=== PATIENT | female | born 1960 | race Caucasian/White ===

== ENCOUNTER → 2019-06-19 16:53 | Outpatient (CLI) | payer BC, SELFPAY | LOC: LABSPEC 16:56 | PROVIDERS: Family Provider Physician Assistant; PCP Physician Assistant | DX: R82.998 Other abnormal findings in urine (principal) | CPT/HCPCS: 87086; 87088; 87186 ==

== ENCOUNTER 2022-04-17 07:30 | Outpatient (RCR) | payer BC, SELFPAY ==
--- NOTE | 2022-03-18 08:34 | HP.PTEVAL_ITS ---
Patient's Visit Information LAMBERTO JUNIOR is a 61 year old F referred to Physical Therapy by Dr. Olinda Humphrey DO with a diagnosis of LBP with radiculopathy. Date of Evaluation: 03/18/22 Physical Therapist: Juarez Porter, PT, ATC - Visit Plan Frequency: 2x /Week Duration: 4-6 Weeks Plan: SKTC/DKTC, L/S stab ex's in neutral spine, LE stretching and strengthening, postural edu, and HEP - Subjective Pt reports she has had LBP chronically for several years. Pt notes her pain will radiate down her L LE all the way down to her foot. Pt reports she has been cramping in her LE's a lot as well. Pt notes she was placed on restless leg syn drome medication a while ago, which helped with the movements at night time. However, pt notes that is when her LE cramping began. Pt notes she has taken herself off the meds now and the cramping is gone. Pt reports her back pain remains the same. Pt reports her pain is worse at night time when she lyes down on her L side. Pt reports her pain is bad also if she sits for a long period of time and then attempts to stand up. 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 Pt reports stretching her LE's helps to take away some of her pain. Pt reports she had a L/S xray recently which revealed OA. Pt reports sleep difficulty at this time secondary to pain. 4/10 LBP while sitting here at rest, 9/10 pain at worst (when she is lying down) - Pain LBP Pain Intensity (Out of 10): 4 Pain Intensity Range: 9 - Objective Neuro: B LE sensation is WNL to light touch. ROM: Pt is minimally limited with R SB today. No other limitations. R SB causes increased pain. MMT: L hip flexor strength and knee flexion is 4/5 and provokes LBP. all other B LE's 5/5 thr oughout. Repeated movements: RFIS 10x3 produces increased LBP. GIOVANI 10x3 NE. REIL 10x2 increased LBP. LE flexibility: - Balance/Special Test Scores Oswestry Low Back Score: 12 - Goals Goal 1:: Decrease LBP x 50% to aid with sleep Goal Time Frame: 4-6 Weeks Goal 2:: Decrease the frequency and intensity of L LE radiculopathy x 50% to aid with ambulation Goal Time Frame: 4-6 Weeks Goal 3:: Pt will both verbally and physically display proper posture to aid with preventing future LBP Goal Time Frame: 4-6 Weeks Goal 4:: I with HEP Goal Time Frame: 4-6 Weeks - Rehabilitation Potential Physical Therapy Diagnosis: Pt has LBP, R LE radiculopathy, and difficulty with sit to stand activity secondary to Deg changes in the L/S Rehabilitation Potential: Good - Anticipated Interventions Patient/Client Instruction: Educate patient on: Condition, Plan of Care For the Purpose of:: To improve self management Therapeutic Exercise to Include: Strength training, Endurance training, Balance training, Body mechanics, Postural training, Dynamic Lumbar Stabilization For the Purpose of:: To decrease pain, To increase ROM, To improve muscle performance and motor function Thank you for the opportunity to evaluate your patient. For Medicare and Medicare HMO plans, please review the plan of care and approve it. It will need to be FAXED BACK to us at [phone] for Medicare purposes. For Medicare only, by signing this I certify the plan of care. Please let me know if there are questions or concerns regarding this plan of care. Physician S ignature: Date:
--- NOTE | 2022-04-17 08:10 | HP.PTDCSUM ---
It has been my pleasure to treat LAMBERTO JUNIOR referred by Dr. Olinda Humphrey, DO, with the diagnosis of LBP with radiculopathy for a total of 7 visit(s). Discharge Date: Please see the following information for a summary of their discharge status. Subjective: I am feeling much better now. LBP Pain Intensity (Out of 10): 2 % Improvement: 75 Objective/Function: 2/10 LBP. Pt no longer has sleep difficulty at this time secondary to pain. Pt no longer has LE radiculopathy at this time. Pt is now physically and verbally aware of posture at this time. Pt is I with HEP and has achieved Rx goals. Goal 1:: Decrease LBP x 50% to aid with sleep Goal Progress: Goal Met Goal 2:: Decrease the frequency and intensity of L LE radiculopathy x 50% to aid with ambulation Goal Progress: Goal Met Goal 3:: Pt will both verbally and physically display proper posture to aid with preventing future LBP Goal Progress: Goal Met Goal 4:: I with HEP Goal Progress: Goal Met Plan: Discharge to HEP If there are questions or concerns regarding this patient's physical therapy, please feel free to call me at [phone]. Thank you for the referral of this patient. Sincerely, Juarez Porter, PT, ATC Balance/Gait/Functional tests - Balance/Special Test Scores Oswestry Low Back Score: 0
== END 2022-04-17 19:00 | disposition home or self-care (01) ==
LOC: PT 07:30
DX: M54.16 Radiculopathy, lumbar region (principal)
CPT/HCPCS: 97110; 97161; 97164

== ENCOUNTER 2022-10-26 17:30 | Outpatient (RCR) | payer BC, SELFPAY ==
--- NOTE | 2022-07-30 10:59 | HP.PTEVAL_ITS ---
Patient's Visit Information LAMBERTO JUNIOR is a 61 year old F referred to Physical Therapy by ADRIAN ESTEBAN with a diagnosis of L TKA 07/30/22. Date of Evaluation: 07/30/22 Physical Therapist: Juarez Porter, PT, ATC - Visit Plan Frequency: 2-3x /Week Duration: 4-6 Weeks Plan: L knee PROM/mobs, stretching and strengthening, balance and proprio, core strengthening, nustep, and HEP - Subjective DOS: 07/29/22. Pt reports she had a L TKA performed at that time. Pt reports she is in a lot of pain today. Pt notes she is sleeping in a recliner at this time Pt also notes her PA is concerned with her incision bleeding today and wants a picture of it. Pt notes she was not walking with any assistive device prior to surgery but is using a WW at this time. Pt notes she has several steps in her house and 4 steps to get into her house which she is able to negotiate one step at a time. Pt [place] in [place] [employer] [place] has to stand on concrete all day and climb ladders. Pt denies tingling or numbness in her L LE at this time. Pt reports she has not been issued any HEP at this time. L knee pain is 4/10 at rest currently and has not changed at all. - Pain L knee Pain Intensity (Out of 10): 4 Pain Intensity Range: 4 - Objective Neuro: B LE sensation is WNL. Tu.24. ROM: R knee 0-5-120, L knee 0-20-75. MMT: R knee flex= 39, ext= 45 #F; L knee flex= 10, ext= 11 #F. Girth at joint line: R knee 41 cm, L knee 43 cm. Gait: Pt is able to ambulate approximately 140 feet from waiting room to eval room without difficulty this date - Balance/Special Test Scores Lower Extremity Functional Score: 4 - Goals Goal 1:: Decrease L knee pain x 50% to aid with sleep Goal Time Frame: 4-6 Weeks Goal 2:: Increase L knee ROM x 50 degrees to aid with stair negotiation Goal Time Frame: 4-6 Weeks Goal 3:: Increase L knee strength x 30 #F to aid with RTW without limitation Goal Time Frame: 4-6 Weeks Goal 4:: I with HEP Goal Time Frame: 4-6 Weeks - Rehabilitation Potential Physical Therapy Diagnosis: Pt has L knee pain, weakness, and limited ROM secondary to L TKA Rehabilitation Potential: Good - Anticipated Interventions Patient/Client Instruction: Educate patient on: Condition, Plan of Care For the Purpose of:: To improve self management Therapeutic Exercise to Include: Strength training, Endurance training, Balance training, Flexibilty training, Gait and locomotor training, Passive ROM, Active ROM, Dynamic Lumbar Stabilization For the Purpose of:: To decrease pain, To increase ROM, To improve muscle performance and motor function Cryotherapy (ice pack, ice massage): Yes For the Purpose of:: To decrease pain Thank you for the opportunity to evaluate your patient. For Medicare and Medicare HMO plans, please review the plan of care and approve it. It will need to be FAXED BACK to us at [phone] for Medicare purposes. For Medicare only, by signing this I certify the plan of care. Please let me know if there are questions or concerns regarding this plan of care. Physician Signature: Date:
--- NOTE | 2022-08-25 10:09 | HP.PTREVAL ---
ADRIAN ESTEBAN, It has been my pleasure to treat LAMBERTO JUNIOR over the last 8 visits for L TKA 07/30/22. Please see the progress note below for an update on the physical therapy plan of care! Subjective: Pt reports she still has pain today. Also complains of LBP this date Objective/Function: L knee pain ranges from 5-7/10. L knee ROM: 0-10-98. L knee MMT: flex= 30, ext= 25 #F. Pt continues to lack functional ROM at this time Plan Plan: Focus strictly on ROM flex and extension for the next 3 weeks. Balance/Gait/Functional tests - Balance/Special Test Scores Lower Extremity Functional Score: 52 Goals Goal 1:: Decrease L knee pain x 50% to aid with sleep Goal Time Frame: 4-6 Weeks Goal Progress: Progressing Goal 2:: Increase L knee ROM x 50 degrees to aid with stair negotiation Goal Time Frame: 4-6 Weeks Goal Progress: Progressing Goal 3:: Increase L knee strength x 30 #F to aid with RTW without limitation Goal Time Frame: 4-6 Weeks Goal Progress: Progressing Goal 4:: I with HEP Goal Time Frame: 4-6 Weeks Goal Progress: Progressing Anticipated Interventions Patient/Client Instruction: Educate patient on: Condition, Plan of Care For the Purpose of:: To improve self management Therapeutic Exercise to Include: Strength training, Endurance training, Balance training, Flexibilty training, Gait and locomotor training, Passive ROM, Active ROM, Dynamic Lumbar Stabilization For the Purpose of:: To decrease pain, To increase ROM, To improve muscle performance and motor function Cryotherapy (ice pack, ice massage): Yes For the Purpose of:: To decrease pain Please do not hesitate to contact me at [phone] by phone or if you have questions or concerns regarding this new plan of care! Sincerely, Juarez Porter, PT, ATC
--- NOTE | 2022-10-26 18:00 | HP.PTDCSUM ---
It has been my pleasure to treat LAMBERTO JUNIOR referred by ADRIAN ESTEBAN, with the diagnosis of L TKA 07/30/22 for a total of 34 visit(s). Discharge Date: Please see the following information for a summary of their discharge status. Subjective: Pt reports she has been sore since she returned to work last week L knee Pain Intensity (Out of 10): 1 % Improvement: 95 Objective/Function: L knee pain ranges from 1-5/10. Pt is I with HEP. L knee MMT: flex= 33, ext= 39 #F. L knee ROM: 0-128 degrees Goal 1:: Decrease L knee pain x 50% to aid with sleep Goal Progress: Goal Met Goal 2:: Increase L knee ROM x 50 degrees to aid with stair negotiation Goal Progress: Goal Met Goal 3:: Increase L knee strength x 30 #F to aid with RTW without limitation Goal Progress: Goal Met Goal 4:: I with HEP Goal Progress: Goal Met Plan: Discharge to HEP If there are questions or concerns regarding this patient's physical therapy, please feel free to call me at [phone]. Thank you for the referral of this patient. Sincerely, Juarez Porter, PT, ATC Balance/Gait/Functional tests - Balance/Special Test Scores Lower Extremity Functional Score: 75
== END 2022-10-26 19:00 | disposition home or self-care (01) ==
LOC: PT 17:30
DX: M17.12 Unilateral primary osteoarthritis, left knee (principal); Z47.1 Aftercare following joint replacement surgery; Z96.652 Presence of left artificial knee joint
CPT/HCPCS: 97110; 97140; 97161; 97164

== ENCOUNTER 2023-06-17 13:38 | Emergency (ER) | payer BC, SELFPAY ==
[2023-06-17 13:39] VITALS: BP 127/81; PULSE 99; RESP 16; TEMP 36.4; O2SAT 97; BMI 28.0
--- OUTSIDE RECORDS SUMMARY | 2023-06-17 14:49 | XMS RPT_ITS | CCD ---
Author Name Unknown Address [address] [place] [address] Organization [facility] Care Team Providers Care Stock Lifter Name Role Phone SEEELODIA OSPINA Q Unavailable Unavailable SEEELODIA OSPINA Unavailable Unavailable WAYT JAJA Unavailable Unavailable WENDY DO, DR RENAE Primary Care Physician ([facility] )[id number] Ronda Veronica Unavailable Unavailable Payal Strong Unavailable Unavailable Danielle Lemus Unavailable Unavailable WENDY DO, DR RENAE Primary Care Physician ([facility] )[id number] HANK GARRETT, DR SENA Attending Unavailable WENDY DO, DR RENAE Primary Care Unavailable WEDNY DO, DR RENAE Attending Unavailable WENDY DO, DR RENAE Primary Care Unavailable WENDY DO, DR RENAE Attending Unavailable WENDY DO, DR RENAE Primary Care Unavailable WENDY DO, DR RENAE Primary Care Unavailable CAMILO FARIAS, DR JASMYNE Yap Attending Unavaildilma e WENDY DO, DR RENAE Primary Care Unavailable LESLY GARRETT, LIOR Melo Attending Unavailable DULIK DO, DR SENA Attending Unavailable WENDY DO, DR RENAE Primary Care Unavailable Medications Current Medications Medication Drug Class(es) Dates Sig (Normalized) Sig (Original) 8 hr acetaminophen 650 mg extended release oral tablet (7 sources) Start: 10-31-2021 Tylenol 8 Hour 650 mg oral tablet, extended release Dose : 1,300 mg = 2 tab(s), Oral, q8h, 0 Refill(s) Start Date: 10/31/21 Status: Ordered albuterol MDI (90 mcg/inh) CFC free inhalation aerosol (1 source) Start: 05-22-2023 take 2 puff(s) by inhalation every four hours as needed for wheezing albuterol MDI (90 mcg/inh) CFC free inhalation aerosol 2 puff(s), Inhalation, q4h, PRN as needed for wheezing, # 8.5 gram(s), 0 Refill(s) Start Date: 05/22/23 Status: Ordered Azithromycin 5 Day Dose Pack 250 mg oral tablet (1 source) Start: 05-22-2023 End: 05-26-2023 Azithromycin 5 Day Dose Pack 250 mg oral tablet Dose : 250 mg = 1 tab(s), Oral, qDay, X 4 day(s), # 4 tab(s), 0 Refill(s), 05/26/23 12:52:00 PM EST, 87.2 Start Date: 05/22/23 Stop Date: 05/26/23 Status: Ordered cefdinir 300 mg oral capsule (1 source) Cephalosporin Antibacterial Start: 06-09-2022 End: 06-14-2022 cefdinir 300 mg oral capsule Dose : 300 mg = 1 cap(s), Oral, q12h, X 5 day(s), # 10 cap(s), 0 Refill(s), 06/14/22 10:19:00 EST, Pharmacy: [id number], Acute UTI, 167, cm, 06/09/22 9:55:00 EST, Height, 86.6 Start Date: 06/09/22 Stop Date: 06/14/22 Status: Ordered cephalexin 500 mg oral capsule (1 source) Cephalosporin Antibacterial Start: 06-11-2021 End: 06-18-2021 cephalexin 500 mg oral capsule Dose : 500 mg = 1 cap(s), Oral, q8h, X 7 day(s), # 21 cap(s), 0 Refill(s), 06/18/21 16:59:00 EST, Pharmacy: [facility]/pharmacy #[id number], UTI (urinary tract infection), 172, cm, 06/11/21 16:37:00 EST, Height, 85.7, kg, 06/11/21 16:37:00 EST, Dosing Weight Start Date: 06/11/21 Stop Date: 06/18/21 Status: Ordered homatropine methylbromide 1.5 mg / HYDROcodone bitartrate 5 mg oral tablet (1 source) Opioid Agonist, Cholinergic Muscarinic Agonist Start: 05-22-2023 End: 05-25-2023 take 1 tablet by mouth every four hours as needed for cough homatropine-hydro codone 1.5 mg-5 mg oral tablet Dose = 1 tab(s), Oral, q4h, PRN as needed for cough, Dx: R05, # 10 tab(s), 0 Refill(s), Pneumonia, 87.2 Start Date: 05/22/23 Stop Date: 05/25/23 Status: Ordered pantoprazole 40 mg delayed release oral tablet (6 sources) Proton Pump Inhibitor Start: 04-07-2022 pantoprazole 40 mg oral enteric coated tablet Dose : 40 mg = 1 tab(s), Oral, qDay, # 30 tab(s), 0 Refill(s) Start Date: 04/07/22 Status: Ordered rOPINIRole 0.25 mg oral tablet (5 sources) Nonergot Dopamine Agonist Start: 06-07-2020 rOPINIRole 0.25 mg oral tablet Dose : 0.25 mg = 1 tab(s), qHS, 0 Refill(s) Start Date: 06/07/20 Status: Ordered sulfamethoxazole 800 mg / trimethoprim 160 mg oral tablet (1 source) Dihydrofolate Reductase Inhibitor Antibacterial, Sulfonamide Antimicrobial Start: 08-13-2021 End: 08-20-2021 take 1 tablet by mouth twice daily Bactrim DS 800 mg-160 mg oral tablet Dose = 1 tab(s), Oral, BID, X 7 day(s), # 14 tab(s), 0 Refill(s), Pharmacy: [id number], 172, cm, 08/13/21 10:25:00 EST, Height, 89.8, kg, 08/13/21 10:25:00 EST, Dosing Weight Start Date: 08/13/21 Stop Date: 08/20/21 Status: Ordered traZODone hydrochloride 50 mg oral tablet (4 sources) Serotonin Reuptake Inhibitor Start: 07-14-2022 traZODone 50 mg oral tablet Dose : 50 mg = 1 tab(s), Oral, qHS, # 30 tab(s), 0 Refill(s), Pharmacy: [id number], 167, cm, 07/14/22 7:17:00 EST, Height Start Date: 07/14/22 Status: Ordered Completed/Discontinued Medications Medication Drug Class(es) Dates Sig (Normalized) Sig (Original) baclofen 10 mg oral tablet (11 sources) gamma-Aminobutyric Acid-ergic Agonist Start: 08-19-2021 End: 11-17-2021 baclofen 10 mg oral tablet Dose : 10 mg = 1 tab(s), Oral, q6hr, # 120 tab(s), 2 Refill(s), Pharmacy: [facility], 172, cm, 08/13/21 10:25:00 EST, Height, kg, 08/13/21 10:25:00 EST, Dosing Weight Start Date: 08/19/21 Stop Date: 11/17/21 Status: Ordered Problems Active Problems Problem Classification Problem Date Documented Da te Episodic/Chronic Disorders of lipid metabolism (11 sources) Hyperlipidemia 07-31-2020 Chronic Esophageal disorders (9 sources) Gastroesophageal reflux disease without esophagitis 09-02-2021 Chronic Heart valve disorders (11 sources) Heart murmur 10-16-2014 Episodic Menopausal disorders (11 sources) Atrophy of vagina 10-12-2019 Chronic Mood disorders (11 sources) Depressive disorder 10-23-2014 Chronic Osteoarthritis (9 sources) Arthritis 10-16-2014 Chronic Osteoporosis (11 sources) Osteoporosis 06-28-2020 Chronic Other connective tissue disease (7 sources) Cramp in lower limb 09-02-2021 Episodic Other gastrointestinal disorders (11 sources) Irritable bowel syndrome 10-12-2019 Chronic Other nervous system disorders (6 sources) Paresthesia of lower extremity 04-07-2022 Episodic Other nutritional; endocrine; and metabolic disorders (4 sources) Obesity 07-14-2022 Chronic Other nutritional; endocrine; and metabolic disorders (11 sources) Overweight 10-12-2019 Episodic Other skin disorders (11 sources) Vesicular eczema of hands and/or feet 10-12-2019 Episodic Pneumonia (except that caused by tuberculosis or sexually transmitted disease) (2 sources) Pneumonia; Translations: [Pneumonia, unspecified organism] Onset: Episodic Residual codes; unclassified (11 sources) Obstructive sleep apnea syndrome 06-07-2020 Chronic Residual codes; unclassified (5 sources) Sleep apnea 10-16-2014 Chronic Residual codes; unclassified (11 sources) Postmenopausal state 06-07-2020 Episodic Residual codes; unclassified (4 sources) Insomnia 07-14-2022 Episodic Spondylosis; intervertebral disc disorders; other back problems (6 sources) Lumbar spondylosis 04-07-2022 Chronic Spondylosis; intervertebral disc disorders; other back problems (9 sources) Spasm of back muscles 10-12-2019 Episodic Unclassified (1 source) Unknown / UNK(Unknown) Onset: 7 Unclassified (9 sources) Cancer cervix screening status 06-07-2020 Unclassified (18 sources) Patient encounter status 06-07-2020 Unclassified (2 sources) Acquired absence of uterine cervix 09-22-2022 Past or Other Problems Problem Classification Problem Date Documented Da te Episodic/Chronic Genitourinary symptoms and ill-defined conditions (10 sources) Abnormal urinalysis; Translations: [Foul smelling urine] Onset: 06-09-2022 06-09-2022 Episodic Unclassified (1 source) CP, SOB, PALPITATIONS Onset: 12-31-2016 Urinary tract infections (8 sources) Recurrent urinary tract infection; Translations: [Urinary tract infection, site not specified] Onset: 06-09-2022 06-09-2022 Episodic Results Test Name Value Interpretation Reference Range Facil ity Vital Signs Date Time Vital Sign Value Performing Clinician Faci lity 05-22-2023 14:02-0500 Diastolic Blood Pressure Non-Invasive 79 mm[Hg] DR JASMYNE PAGE MD [facility] 05-22-2023 14:02-0500 Heart rate 122 /min DR JASMYNE PAGE MD [facility] 05-22-2023 14:02-0500 Reason For Taking VItal Signs DR JASMYNE PAGE MD [facility] 05-22-2023 14:02-0500 Respiratory rate 16 /min DR JASMYNE PAGE MD [facility] 05-22-2023 14:02-0500 Systolic Blood Pressure Non-Invasive 130 mm[Hg] DR JASMYNE PAGE MD [facility] 05-22-2023 12:58-0500 Heart rate 112 /min DR JASMYNE PAGE MD [facility] 05-22-2023 12:58-0500 Respiratory rate 20 /min DR JASMYNE PAGE MD [facility] 05-22-2023 12:29-0500 Diastolic Blood Pressure Non-Invasive 78 mm[Hg] DR JASMYNE PAGE MD [facility] 05-22-2023 12:29-0500 Heart rate 115 /min DR JASMYNE PAGE MD [facility] 05-22-2023 12:29-0500 Respiratory rate 22 /min DR JASMYNE PAGE MD [facility] 05-22-2023 12:29-0500 Systolic Blood Pressure Non-Invasive 126 mm[Hg] DR JASMYNE PAGE MD [facility] 05-22-2023 10:16-[address] JASMYNE PAGE MD [facility] 05-22-2023 10:16-0500 Body temperature 97.88 [degF] DR JASMYNE PAGE MD [facility] 05-22-2023 10:16-0500 Diastolic Blood Pressure Non-Invasive 88 mm[Hg] DR JASMYNE PAGE MD [facility] 05-22-2023 10:16-0500 Reason For Taking VItal Signs DR JASMYNE PAGE MD [facility] 05-22-2023 10:16-0500 Systolic Blood Pressure Non-Invasive 123 mm[Hg] DR JASMYNE PAGE MD [facility] 10-31-2021 10:25-0400 Diastolic Blood Pressure NBP [address] NAZ HAN MD [facility] 10-31-2021 10:25-0400 Heart rate 86 /min DR NAZ HAN MD [facility] 10-31-2021 10:25-0400 Respiratory rate 19 /min DR NAZ HAN MD [facility] 10-31-2021 10:25-0400 Systolic Blood Pressure NBP [address] NAZ HAN MD [facility] 10-31-2021 10:20-0400 Diastolic Blood Pressure NBP [address] NAZ HAN MD [facility] 10-31-2021 10:20-0400 Heart rate 87 /min DR NAZ HAN MD [facility] 10-31-2021 10:20-0400 Respiratory rate 12 /min DR NAZ HAN MD [facility] 10-31-2021 10:20-0400 Systolic Blood Pressure NBP [address] NAZ HAN MD [facility] 10-31-2021 10:12-0400 Diastolic Blood Pressure NBP [address] NAZ HAN MD [facility] 10-31-2021 10:12-0400 Heart rate 82 /min DR NAZ HAN MD [facility] 10-31-2021 10:12-0400 Respiratory rate 19 /min DR NAZ HAN MD [facility] 10-31-2021 10:12-0400 Systolic Blood Pressure NBP [address] NAZ HAN MD [facility] 10-31-2021 10:05-0400 Heart rate 71 /min DR NAZ HAN MD [facility] 10-31-2021 08:02-0400 Body height [address] NAZ HAN MD [facility] 10-31-2021 08:02-0400 Body temperature 97.34 [degF] DR NAZ HAN MD [facility] 10-31-2021 08:02-0400 Body weight [address] NAZ HAN MD [facility] 10-31-2021 08:02-0400 Body weight 31.91 kg/m2 DR NAZ HAN MD [facility] 10-31-2021 08:02-0400 diastolic 81 mm[Hg] DR ANZ HAN MD [facility] 10-31-2021 08:02-0400 systolic 136 mm[Hg] DR NAZ HAN MD [facility] Encounters Encounter Date Encounter Type Care Provider Facility Start: 05-22-2023 End: 05-22-2023 Emergency department patient visit DR OC NGUYEN DO Facility:B Start: 05-22-2023 End: 05-22-2023 Emergency department patient visit DR JASMYNE PAGE MD [facility] Start: 10-27-2022 End: 10-28-[address] OC NGUYEN DO Facility:[facility] Start: 10-27-2022 End: 10-27-[address] OC NGUYEN DO [facility] Start: 09-17-2022 End: 09-18-[address] OC NGUYEN DO Facility:[facility] Start: 09-17-2022 End: 09-17-[address] OC NGUYEN DO [facility] Start: 07-14-2022 End: 07-15-[address] NATHEN MCKINNEY DO Facility:[facility] Start: 07-14-2022 End: 07-14-[address] NATHEN MCKINNEY DO [facility] Start: 07-10-2022 End: 07-11-[address] NATHEN MCKINNEY DO Facility:[facility] Start: 07-10-2022 End: 07-10-[address] NATHEN MCKINNEY DO [facility] Start: 06-09-2022 End: 06-14-[address] OC NGUYEN DO Facility:[facility] Start: 06-09-2022 End: 06-13-2022 Outreach Lab LIOR GRACE DO [facility] Start: 10-31-2021 End: 10-31-[address] NAZ HAN MD [facility] Start: 10-22-2021 End: 10-22-[address] OC NGUYEN DO [facility] Start: 09-15-2021 End: 09-15-[address] OC NGUYEN DO [facility] Start: 08-13-2021 End: 08-17-2021 Outreach Lab COREY AVELAR ESCROW REPRESENTATIVEiCar AsiaROTOGRAVURE PRESS OPERATOR [facility] Start: 06-11-2021 End: 06-15-2021 Outreach Lab COREY AVELAR ESCROW REPRESENTATIVEiCar AsiaROTOGRAVURE PRESS OPERATOR [facility] Start: 12-31-2016 Ambulatory [facility] Facility :[facility] Procedures Date Procedure Procedure Detail Performing Clinician Start: 10-23-2014 Hysterectomy COREY AVELAR ESCROW REPRESENTATIVE-ROTOGRAVURE PRESS OPERATOR Immunizations Immunization Date Immunization Notes Care Provider Latha newman 02-12-2021 COVID-19, mRNA, LNP- S, PF, 100 mcg/ 0.5 mL dose; Translations: [Moderna COVID-19 Vaccine] COREY AVELAR ESCROW REPRESENTATIVE-ROTOGRAVURE PRESS OPERATOR [facility] 01-15-2021 COVID-19, mRNA, LNP- S, PF, 100 mcg/ 0.5 mL dose; Translations: [Moderna COVID-19 Vaccine] COREY AVELAR ESCROW REPRESENTATIVE-ROTOGRAVURE PRESS OPERATOR [facility] 06-07-2020 tetanus toxoid, redu velvet diphtheria toxoid, and acellular pertussis vaccine, adsorbed; Translations: [Boostrix (Tdap)] COREY AVELAR ESCROW REPRESENTATIVE-ROTOGRAVURE PRESS OPERATOR [facility] Payers Date Payer Category Payer Unknown [id number] 2021 Unknown [id number] 2016 Unknown [id number] 1961 Unknown [id number] 2.16.8 [id number] 1961 Unknown [id number] 2.16.8 [id number] 1961 Unknown [id number] 2.16.8 [id number] 1961 Unknown [id number] 2.16.8 [id number] 1961 Unknown [id number] 2.16.8 [id number] 1961 Unknown [id number] [id number] [id number] Social History Date Type Detail Facility Start: 12-30-2018 Ex-smoker (finding) [facility] Sex Assigned At Female [facility] Functional Status Date Assessment Result Facility 05-22-2023 Functional Status ID band on [facility] 05-22-2023 Functional Status [facility] 10-31-2021 Functional Status [facility] Mental Status Date Assessment Result Facility 05-22-2023 Mental Status Orientation Oriented x 4 [facility] 05-22-2023 Mental Status [facility] 10-31-2021 Mental Status [facility] Clinical Notes 02-11-2021 to 05-22-2023 Laboratory Note Date & Type Note Facility 05-22-2023 Hospital Discharge instructions Patient Education 05/22/2023 12:52:10 Pneumonia (Adult) Pneumonia (Adult) Pneumonia is an infection deep within the lungs. It is in the small air sacs (alveoli). Pneumonia may be caused by a virus or bacteria. Pneumonia caused by bacteria is usually treated with an antibiotic. Severe cases may need to be treated in the hospital. Milder cases can be treated at home. Symptoms usually start to get better during the first 2 days of treatment. Home care Follow these guidelines when caring for yourself at home: Rest at home for the first 2 to 3 days, or until you feel stronger. Don t let yourself get overly tired when you go back to your activities. Stay away from cigarette smoke yours or other people s. You may use acetaminophen or ibuprofen to control fever or pain, unless another medicine was prescribed. If you have chronic liver or kidney disease, talk with your healthcare provider before using these medicines. Also talk with your provider if you ve had a stomach ulcer or gastrointestinal bleeding. Don t give aspirin to anyone younger than 18 years of age who is ill with a fever. It may cause severe liver damage. Your appetite may be poor, so a light diet is fine. Drink 6 to 8 glasses of fluids every day to make sure you are getting enough fluids. Beverages can include water, sport drinks, sodas without caffeine, juices, tea, or soup. Fluids will help loosen secretions in the lung. This will make it easier for you to cough up the phlegm (sputum). If you also have heart or kidney disease, check with your healthcare provider before you drink extra fluids. Take antibiotic medicine prescribed until it is all gone, even if you are feeling better after a few days. Follow-up care Follow up with your healthcare provider in the next 2 to 3 days, or as advised. This is to be sure the medicine is helping you get better. If you are 65 or older, you should get a pneumococcal vaccine and a yearly flu (influenza) shot. You should also get these vaccines if you have chronic lung disease like asthma, emphysema, or COPD. Recently, a second type of pneumonia vaccine has become available for everyone over 65 years old. This is in addition to the previous vaccine. Ask your provider about this. When to seek medical advice Call your healthcare provider right away if any of these occur: You don t get better within the first 48 hours of treatment Shortness of breath gets worse Rapid breathing (more than 25 breaths per minute) Coughing up blood Chest pain gets worse with breathing Fever of 100.4 F (38 C) or higher that doesn t get better with fever medicine Weakness, dizziness, or fainting that gets worse Thirst or dry mouth that gets worse Sinus pain, headache, or a stiff neck Chest pain not caused by coughing [phone] [employer]. [address] [place] [address]. All rights reserved. This information is not intended as a substitute for professional medical care. Always follow your healthcare professional's instructions. Follow Up Care 05/22/2023 10:10:14 With:OC NGUYEN DO Address: [address] [place] [phone]- [phone] When:2-4 days [facility] 05-22-2023 Emergency department Discharge summary Discharge Instructions Thank you for allowing [facility] to assist you with your healthcare needs. The following is important discharge information regarding your hospital visit. Diagnosis from Today's Visit Pneumonia Shortness of breath What to Do Next Instructions from Your Care Team No qualifying data available. Post Acute Orders No qualifying data available. You Need to Schedule the Following Appointments Follow Up with OC NGUYEN DO When Within 2-4 days Where: [address] [place] [phone] Allergies NKA Medications Please ask your primary doctor or pharmacist before taking any other medication not listed, including over the counter drugs, herbal medications, vitamins and or supplements as they may interact with your home medications. What How Much When Why Instructions Last Dose New albuterol (albuterol MDI (90 mcg/ inh) CFC free inhalation aerosol) 2 puff(s) by inhalation Every 4 hours as needed for as needed for wheezing Printed Prescription New azithromycin (Azithromycin 5 Day Dose Pack 250 mg oral tablet) 1 tab(s) by mouth Once a day Duration: 4 Days Printed Prescription New homatropine-hydrocodone (homatropine-hydrocodone 1.5 mg-5 mg oral tablet) 1 tab(s) by mouth Every 4 hours as needed for as needed for cough Pneumonia Duration: 3 Days Dx: R05 Printed Prescription Unchanged acetaminophen (Tylenol 8 Hour 650 mg oral tablet, extended release) 2 tab(s) by mouth Every 8 hours Unchanged baclofen (baclofen 10 mg oral tablet) 1 tab(s) by mouth Every 6 hours Duration: 30 Days Unchanged denosumab (Prolia 60 mg/ mL subcutaneous solution) 1 Milliliter Subcutaneous Every 6 months Unchanged denosumab (Prolia 60 mg/ mL subcutaneous solution) 1 Milliliter Subcutaneous Every 6 months Unchanged pantoprazole (pantoprazole 40 mg oral enteric coated tablet) 1 tab(s) by mouth Once a day Unchanged traZODone (traZODone 50 mg oral tablet) 1 tab(s) by mouth Daily at bedtime Please take this list to your next doctor s visit. Bring all medications you take, including over the counter medications, herbals and other supplements with you to your doctor s visit. Patients and families are reminded to discard old lists and to update any records with all medication providers or retail pharmacies. Medication Leaflets azithromycin (oral/injection) (a ALONDRA MAYBERRY sin) Azithromycin 3 Day Dose Pack, Azithromycin 5 Day Dose Pack, Zithromax, Zithromax IV, Zithromax TRI-RA, Zithromax Z-Ra What is the most important information I should know about azithromycin? You should not use azithromycin if you have ever had an allergic reaction, jaundice, or liver problems while taking this medicine. You should not use azithromycin if you have ever had a severe allergic reaction to similar drugs such as clarithromycin, erythromycin, or telithromycin. What is azithromycin? Azithromycin is used to treat many different types of infections caused by bacteria, including infections of the lungs, sinus, throat, tonsils, skin, urinary tract, cervix, or genitals. Azithromycin may also be used for purposes not listed in this medication guide. What should I discuss with my healthcare provider before using azithromycin? You should not use azithromycin if you are allergic to it, or if you have ever had: jaundice or liver problems caused by taking azithromycin; or a severe allergic reaction to similar drugs such as clarithromycin, erythromycin, or telithromycin. Azithromycin oral should not be used to treat pneumonia in people who have: cystic fibrosis; an infection after being in a hospital; an infection in the blood; a weak immune system (caused by diseases such as HIV/AIDS or cancer); or in older adults and those who are ill or debilitated. Tell your doctor if you have ever had: pneumonia; liver or kidney disease; myasthenia gravis; low levels of potassium in your blood; a heart rhythm disorder; or long QT syndrome (in you or a family member). It is not known whether this medicine is effective in treating genital ulcers in women. Tell your doctor if you are or . Taking azithromycin while may cause diarrhea, vomiting, or rash in the nursing baby. Azithromycin is not approved for use by anyone younger than 6 months old. Azithromycin should not be used to treat a throat or tonsil infection in a child younger than 2 years old. How should I take azithromycin? Follow all directions on your prescription label and read all medication guides or instruction sheets. Use the medicine exactly as directed. Azithromycin oral is taken by mouth. Azithromycin injection is given as an infusion into a vein, usually for 2 days before you switch to azithromycin oral. A healthcare provider will give you this injection. You may take azithromycin oral with or without food. Shake the oral suspension (liquid) before you measure a dose. Use the dosing syringe provided, or use a medicine dose-measuring device (not a kitchen spoon). Use this medicine for the full prescribed length of time, even if your symptoms quickly improve. Skipping doses can increase your risk of infection that is resistant to medication. Azithromycin will not treat a viral infection such as the flu or a common cold. Store at room temperature away from moisture and heat. Throw away any unused liquid medicine after 10 days. What happens if I miss a dose? Take the medicine as soon as you can, but skip the missed dose if it is almost time for your next dose. Do not take two doses at one time. What happens if I overdose? Seek emergency medical attention or call the Poison Help line at . What should I avoid while taking azithromycin? Antibiotic medicines can cause diarrhea, which may be a sign of a new infection. If you have diarrhea that is watery or bloody, call your doctor before using anti-diarrhea medicine. Azithromycin could make you sunburn more easily. Avoid sunlight or tanning beds. Wear protective clothing and use sunscreen (SPF 30 or higher) when you are outdoors. What are the possible side effects of azithromycin? Get emergency medical help if you have signs of an allergic reaction (hives, difficult breathing, swelling in your face or throat) or a severe skin reaction (fever, sore throat, burning in your eyes, skin pain, red or purple skin rash that spreads and causes blistering and peeling). Seek medical treatment if you have a serious drug reaction that can affect many parts of your body. Symptoms may include: skin rash, fever, swollen glands, muscle aches, severe weakness, unusual bruising, or yellowing of your skin or eyes. Call your doctor at once if you have: severe stomach pain, diarrhea that is watery or bloody; fast or pounding heartbeats, fluttering in your chest, shortness of breath, and sudden dizziness (like you might pass out); or liver problems--nausea, vomiting, loss of appetite, stomach pain (upper right side), tiredness, itching, dark urine, william-colored stools, jaundice (yellowing of the skin or eyes); Call your doctor right away if a baby taking azithromycin becomes irritable or vomits while eating or nursing. Older adults may be more likely to have side effects on heart rhythm, including a life-threatening fast heart rate. Common side effects may include: nausea, vomiting; or stomach pain. This is not a complete list of side effects and others may occur. Call your doctor for medical advice about side effects. You may report side effects to FDA at 8-269-QRI-1062. What other drugs will affect azithromycin? Tell your doctor about all your other medicines, especially: colchicine; digoxin; nelfinavir; phenytoin; an antacid that contains aluminum or magnesium--Acid Gone, Gaviscon, Gelusil, Maalox, Milk of Magnesia, Mylanta, Pepcid Complete, Rolaids, Rulox, and others; or a blood thinner--warfarin, Coumadin, Jantoven. This list is not complete. Other drugs may affect azithromycin, including prescription and evew-oll-jlbzwcz medicines, vitamins, and herbal products. Not all possible drug interactions are listed here. Where can I get more information? Your pharmacist can provide more information about azithromycin. Remember, keep this and all other medicines out of the reach of children, never share your medicines with others, and use this medication only for the indication prescribed. Every effort has been made to ensure that the information provided by [employer]. [employer]') is accurate, up-to-date, and complete, but no guarantee is made to that effect. Drug information contained herein may be time sensitive. [employer] information has been compiled for use by healthcare practitioners and consumers in the [place] and therefore [employer] does not warrant that uses outside of the [place] are appropriate, unless specifically indicated otherwise. [employer] drug information does not endorse drugs, diagnose patients or recommend therapy. [employer] drug information is an informational resource designed to assist licensed healthcare practitioners in caring for their patients and/or to serve consumers viewing this service as a supplement to, and not a substitute for, the expertise, skill, knowledge and judgment of healthcare practitioners. The absence of a warning for a given drug or drug combination in no way should be construed to indicate that the drug or drug combination is safe, effective or appropriate for any given patient. [employer] does not assume any responsibility for any aspect of healthcare administered with the aid of information [employer] provides. The information contained herein is not intended to cover all possible uses, directions, precautions, warnings, drug interactions, allergic reactions, or adverse effects. If you have questions about the drugs you are taking, check with your doctor, nurse or pharmacist. Copyright 1547-0827 [employer]. Version: 18.01. Revision Date: 10/20/2018. albuterol inhalation (al BYOO ter all) ProAir HFA, ProAir RespiClick, Proventil HFA, Ventolin HFA What is the most important information I should know about albuterol inhalation? Follow all directions on your medicine label and package. Tell each of your healthcare providers about all your medical conditions, allergies, and all medicines you use. What is albuterol inhalation? Albuterol inhalation is a bronchodilator that is used to treat or prevent bronchospasm in people with reversible obstructive airway disease. Albuterol is also used to prevent exercise-induced bronchospasm. Albuterol inhalation is for use in adults and children at least 4 years old. Albuterol inhalation may also be used for purposes not listed in this medication guide. What should I discuss with my healthcare provider before using albuterol inhalation? You should not use this medicine if you are allergic to albuterol. You should not use ProAir RespiClick if you are allergic to milk proteins. Tell your doctor if you have ever had: heart disease, high blood pressure; a thyroid disorder; seizures; diabetes; or low levels of potassium in your blood. Tell your doctor if you are or plan to become . It is not known whether albuterol will harm an unborn baby. However, having uncontrolled asthma during may increase the risk of premature , low weight, or eclampsia (dangerously high blood pressure that can lead to medical problems in both mother and baby). The benefit of preventing bronchospasm may outweigh any risks to the baby. If you are , your name may be listed on a registry to track the effects of albuterol on the baby. It may not be safe to breastfeed while using this medicine. Ask your doctor about any risk. How should I use albuterol inhalation? Follow all directions on your prescription label and read all medication guides. Use the medicine exactly as directed. Do not allow a young child to use albuterol inhalation without help from an adult. To prevent exercise-induced bronchospasm, use this medicine 15 to 30 minutes before you exercise. The effects of albuterol inhalation should last about 4 to 6 hours. Seek medical attention if your breathing problems get worse quickly, or if you think your asthma medications are not working as well. Read and carefully follow any Instructions for Use provided with your medicine. Ask your doctor or pharmacist if you do not understand these instructions. ProAir HFA, Proventil HFA, or Ventolin HFA must be shaken before each use. You do not need to shake ProAir RespiClick before using. Do not try to clean or take apart the ProAir RespiClick inhaler device. Always use the new inhaler device provided with your refill. Do not float a medicine canister in water to see if it is empty. Your dose needs may change due to surgery, illness, stress, or a recent asthma attack. Do not change your dose or dosing schedule without your doctor's advice. Store at room temperature away from moisture, heat, or cold temperatures. Keep the cover on your ProAir RespiClick inhaler when not in use. Store Proventil or Ventolin with the mouthpiece down. Keep the inhaler canister away from open flame or high heat. The canister may explode if it gets too hot. Do not puncture or burn an empty inhaler canister. What happens if I miss a dose? Use the medicine as soon as you can, but skip the missed dose if it is almost time for your next dose. Do not use two doses at one time. Get your prescription refilled before you run out of medicine completely. What happens if I overdose? Seek emergency medical attention or call the Poison Help line at . An overdose of albuterol can be fatal. Overdose symptoms may include dry mouth, tremors, chest pain, fast heartbeats, nausea, general ill feeling, seizure, feeling light-headed or fainting. What should I avoid while using albuterol inhalation? Rinse with water if this medicine gets in your eyes. What are the possible side effects of albuterol inhalation? Get emergency medical help if you have signs of an allergic reaction: hives; difficult breathing; swelling of your face, lips, tongue, or throat. Call your doctor at once if you have: wheezing, choking, or other breathing problems after using this medicine; chest pain, fast heart rate, pounding heartbeats or fluttering in your chest; severe headache, pounding in your neck or ears; pain or burning when you urinate; high blood sugar--increased thirst, increased urination, dry mouth, fruity breath odor; or low potassium--leg cramps, constipation, irregular heartbeats, increased thirst or urination, numbness or tingling, muscle weakness or limp feeling. Common side effects may include: chest pain, fast or pounding heartbeats; upset stomach, vomiting; painful urination; dizziness; feeling shaky or nervous; headache, back pain, body aches; or cough, sore throat, sinus pain, runny or stuffy nose. This is not a complete list of side effects and others may occur. Call your doctor for medical advice about side effects. You may report side effects to FDA at 0-150-CJV-9539. What other drugs will affect albuterol inhalation? Tell your doctor about all your other medicines, especially: any other inhaled medicines or bronchodilators; digoxin; a diuretic or 'water pill'; an antidepressant--amitriptyline, desipramine, imipramine, doxepin, nortriptyline, and others; a beta negar--atenolol, carvedilol, labetalol, metoprolol, propranolol, sotalol, and others; or an MAO inhibitor--isocarboxazid, linezolid, methylene blue injection, phenelzine, rasagiline, selegiline, tranylcypromine, and others. This list is not complete. Other drugs may affect albuterol inhalation, including prescription and kxcp-dhy-dcxcblr medicines, vitamins, and herbal products. Not all possible drug interactions are listed here. Where can I get more information? Your pharmacist can provide more information about albuterol inhalation. Remember, keep this and all other medicines out of the reach of children, never share your medicines with others, and use this medication only for the indication prescribed. Every effort has been made to ensure that the information provided by [employer] is accurate, up-to-date, and complete, but no guarantee is made to that effect. Drug information contained herein may be time sensitive. [employer] information has been compiled for use by healthcare practitioners and consumers in the [place] and therefore [employer] does not warrant that uses outside of the [place] are appropriate, unless specifically indicated otherwise. [employer]'s drug information does not endorse drugs, diagnose patients or recommend therapy. [employer] drug information is an informational resource designed to assist licensed healthcare practitioners in caring for their patients and/or to serve consumers viewing this service as a supplement to, and not a substitute for, the expertise, skill, knowledge and judgment of healthcare practitioners. The absence of a warning for a given drug or drug combination in no way should be construed to indicate that the drug or drug combination is safe, effective or appropriate for any given patient. [employer] does not assume any responsibility for any aspect of healthcare administered with the aid of information [employer] provides. The information contained herein is not intended to cover all possible uses, directions, precautions, warnings, drug interactions, allergic reactions, or adverse effects. If you have questions about the drugs you are taking, check with your doctor, nurse or pharmacist. Copyright [id number] [employer]. Version: 10.. Revision Date: 05/08/2020. homatropine and hydrocodone (PHYLICIA a TROE peen and ROSALINA sheri KOE done) Hycoollie, Hydromet What is the most important information I should know about homatropine and hydrocodone? MISUSE OF THIS MEDICINE CAN CAUSE ADDICTION, OVERDOSE, OR . Keep the medication in a place where others cannot get to it. Fatal side effects can occur if you use this medicine with alcohol, or with other drugs that cause drowsiness or slow your breathing. What is homatropine and hydrocodone? Homatropine and hydrocodone is a combination medicine used to treat runny or stuffy nose, sneezing, cough, and sinus congestion caused by allergies or the common cold. Homatropine and hydrocodone contains an opioid cough medicine and may be habit-forming. Homatropine and hydrocodone may also be used for purposes not listed in this medication guide. What should I discuss with my healthcare provider before taking homatropine and hydrocodone? You should not use this medicine if you are allergic to homatropine or hydrocodone, or if you have: severe asthma or breathing problems; a stomach or bowel obstruction (including paralytic ileus); severe or uncontrolled high blood pressure; severe coronary artery disease (clogged arteries); narrow-angle glaucoma; or if you are unable to urinate. Do not give this medicine to anyone younger than 6 years old. Do not use this medicine if you have used an MAO inhibitor in the past 14 days, such as isocarboxazid, linezolid, methylene blue injection, phenelzine, rasagiline, selegiline, or tranylcypromine. Tell your doctor if you have ever had: lung disease or breathing problems; a head injury, brain tumor, or seizure; constipation, a bowel obstruction, or stomach problems; problems with your bile duct, pancreas, or adrenal gland; an enlarged prostate; urination problems; liver or kidney disease; low blood pressure; heart disease, a blood vessel disorder; a drug addiction; or if you have a fever and cough with mucus. If you use opioid medicine while you are , your baby could become dependent on the drug. This can cause life-threatening withdrawal symptoms in the baby after it is born. Babies born dependent on opioids may need medical treatment for several weeks. Ask a doctor before using opioid medicine if you are . Tell your doctor if you notice severe drowsiness or slow breathing in the nursing baby. How should I take homatropine and hydrocodone? Follow the directions on your prescription label and read all medication guides. Never use this medicine in larger amounts, or for longer than prescribed. Cold or cough medicine is only for short-term use until your symptoms clear up. Never share this medicine with another person, especially someone with a history of drug abuse or addiction. MISUSE CAN CAUSE ADDICTION, OVERDOSE, OR . Keep the medicine in a place where others cannot get to it. Selling or giving away this medicine is against the law. Measure liquid medicine carefully. Use the dosing syringe provided, or use a medicine dose-measuring device (not a kitchen spoon). Rinse after each use. Call your doctor if your symptoms do not improve after 5 days, or if you have a fever, rash, or headaches. If you need surgery or medical tests, tell the surgeon or doctor ahead of time if you have taken a cough or cold medicine within the past few days. Store at room temperature away from moisture and heat. Do not freeze. Do not keep leftover medication. Just one dose can cause in someone using this medicine accidentally or improperly. Read and carefully follow the instructions provided with this medicine about how to safely dispose of any unused portion. What happens if I miss a dose? Since this medicine is used when needed, you may not be on a dosing schedule. Skip any missed dose if it's almost time for your next dose. Do not use two doses at one time. What happens if I overdose? Seek emergency medical attention or call the Poison Help line at . An opioid overdose can be fatal, especially in a child or other person using the medicine without a prescription. Overdose symptoms may include severe drowsiness, pinpoint pupils, slow breathing, or no breathing. Your doctor may recommend you get naloxone (a medicine to reverse an opioid overdose) and keep it with you at all times. A person caring for you can give the naloxone if you stop breathing or don't wake up. Your caregiver must still get emergency medical help and may need to perform CPR (cardiopulmonary resuscitation) on you while waiting for help to arrive. Anyone can buy naloxone from a pharmacy or local health department. Make sure any person caring for you knows where you keep naloxone and how to use it. What should I avoid while taking homatropine and hydrocodone? Do not drink alcohol. Dangerous side effects or could occur. Avoid driving or operating machinery until you know how this medicine will affect you. Dizziness or severe drowsiness can cause falls or other accidents. What are the possible side effects of homatropine and hydrocodone? Get emergency medical help if you have signs of an allergic reaction: hives; difficult breathing; swelling of your face, lips, tongue, or throat. Opioid medicine can slow or stop your breathing, and may occur. A person caring for you should give naloxone and/or seek emergency medical attention if you have slow breathing with long pauses, blue colored lips, or if you are hard to wake up. Stop taking this medicine and call your doctor at once if you have: noisy breathing, sighing, shallow breathing; extreme drowsiness, confusion, feeling weak or limp; a seizure; a light-headed feeling, like you might pass out; severe constipation, stomach pain; little or no urination; adrenal gland problems--nausea, vomiting, loss of appetite, dizziness, worsening tiredness or weakness; or high levels of serotonin in the body--agitation, hallucinations, fever, sweating, shivering, fast heart rate, muscle stiffness, twitching, loss of coordination, nausea, vomiting, diarrhea. Serious breathing problems may be more likely in older adults and in those who are debilitated or have wasting syndrome or chronic breathing disorders. Common side effects may include: drowsiness, dizziness; lack of energy, coordination problems; headache, confusion; dry mouth, nausea, vomiting, constipation; tremors, fast or irregular heart rate; or feeling anxious, restless, nervous, or irritable. This is not a complete list of side effects and others may occur. Call your doctor for medical advice about side effects. You may report side effects to FDA at 2-377-GPM-0498. What other drugs will affect homatropine and hydrocodone? You may have breathing problems or withdrawal symptoms if you start or stop taking certain other medicines. Tell your doctor if you also use an antibiotic, antifungal medication, heart or blood pressure medication, seizure medication, or medicine to treat HIV or hepatitis C. Opioid medication can interact with many other drugs and cause dangerous side effects or . Be sure your doctor knows if you also use: cold or allergy medicines, bronchodilator asthma/COPD medication, or a diuretic ('water pill'); medicines for motion sickness, irritable bowel syndrome, or overactive bladder; other opioids--opioid pain medicine or prescription cough medicine; a sedative like Valium--diazepam, alprazolam, lorazepam, Xanax, Klonopin, Versed, and others; drugs that make you sleepy or slow your breathing--a sleeping pill, muscle relaxer, medicine to treat mood disorders or mental illness; drugs that affect serotonin levels in your body--a stimulant, or medicine for depression, Parkinson's disease, migraine headaches, serious infections, or nausea and vomiting. This list is not complete. Other drugs may affect homatropine and hydrocodone, including prescription and zsns-ghj-ysxfvhw medicines, vitamins, and herbal products. Not all possible interactions are listed here. Where can I get more information? Your pharmacist can provide more information about homatropine and hydrocodone. Remember, keep this and all other medicines out of the reach of children, never share your medicines with others, and use this medication only for the indication prescribed. Every effort has been made to ensure that the information provided by [employer]. [employer] is accurate, up-to-date, and complete, but no guarantee is made to that effect. Drug information contained herein may be time sensitive. [employer] information has been compiled for use by healthcare practitioners and consumers in the [place] and therefore [employer] does not warrant that uses outside of the [place] are appropriate, unless specifically indicated otherwise. [employer]'s drug information does not endorse drugs, diagnose patients or recommend therapy. [employer] drug information is an informational resource designed to assist licensed healthcare practitioners in caring for their patients and/or to serve consumers viewing this service as a supplement to, and not a substitute for, the expertise, skill, knowledge and judgment of healthcare practitioners. The absence of a warning for a given drug or drug combination in no way should be construed to indicate that the drug or drug combination is safe, effective or appropriate for any given patient. [employer] does not assume any responsibility for any aspect of healthcare administered with the aid of information [employer] provides. The information contained herein is not intended to cover all possible uses, directions, precautions, warnings, drug interactions, allergic reactions, or adverse effects. If you have questions about the drugs you are taking, check with your doctor, nurse or pharmacist. Copyright [id number] [employer]. Version: 8.01. Revision Date: 02/01/2023. Education [employer] Pneumonia (Adult) Pneumonia is an infection deep within the lungs. It is in the small air sacs (alveoli). Pneumonia may be caused by a virus or bacteria. Pneumonia caused by bacteria is usually treated with an antibiotic. Severe cases may need to be treated in the hospital. Milder cases can be treated at home. Symptoms usually start to get better during the first 2 days of treatment. Home care Follow these guidelines when caring for yourself at home: Rest at home for the first 2 to 3 days, or until you feel stronger. Don t let yourself get overly tired when you go back to your activities. Stay away from cigarette smoke yours or other people s. You may use acetaminophen or ibuprofen to control fever or pain, unless another medicine was prescribed. If you have chronic liver or kidney disease, talk with your healthcare provider before using these medicines. Also talk with your provider if you ve had a stomach ulcer or gastrointestinal bleeding. Don t give aspirin to anyone younger than 18 years of age who is ill with a fever. It may cause severe liver damage. Your appetite may be poor, so a light diet is fine. Drink 6 to 8 glasses of fluids every day to make sure you are getting enough fluids. Beverages can include water, sport drinks, sodas without caffeine, juices, tea, or soup. Fluids will help loosen secretions in the lung. This will make it easier for you to cough up the phlegm (sputum). If you also have heart or kidney disease, check with your healthcare provider before you drink extra fluids. Take antibiotic medicine prescribed until it is all gone, even if you are feeling better after a few days. Follow-up care Follow up with your healthcare provider in the next 2 to 3 days, or as advised. This is to be sure the medicine is helping you get better. If you are 65 or older, you should get a pneumococcal vaccine and a yearly flu (influenza) shot. You should also get these vaccines if you have chronic lung disease like asthma, emphysema, or COPD. Recently, a second type of pneumonia vaccine has become available for everyone over 65 years old. This is in addition to the previous vaccine. Ask your provider about this. When to seek medical advice Call your healthcare provider right away if any of these occur: You don t get better within the first 48 hours of treatment Shortness of breath gets worse Rapid breathing (more than 25 breaths per minute) Coughing up blood Chest pain gets worse with breathing Fever of 100.4 F (38 C) or higher that doesn t get better with fever medicine Weakness, dizziness, or fainting that gets worse Thirst or dry mouth that gets worse Sinus pain, headache, or a stiff neck Chest pain not caused by coughing [id number] [employer]. [address] [place] [address]. All rights reserved. This information is not intended as a substitute for professional medical care. Always follow your healthcare professional's instructions. Additional Information VACCINATE! IT SAVES LIVES! Members of the community who have not yet received the COVID-19 vaccine and would like to receive it can visit one of [facility] vaccine clinics. There are many vaccine clinic locations within the [facility]. For locations and available times, please visit [email or web address] It is important to note that some COVID mobile vaccine clinics are held outdoors and may be canceled in rainy or stormy conditions. To learn more about pediatric vaccinations (ages 5-11), we invite you to visit the [facility] webpage. https://www.[email or web address]/p [email or web address]-Oxwxj-Mtxzggrpdie-Freq kdahli-Vsqbb-Xawrhmwvc.html To learn more about the COVID-19 vaccine, we invite you to visit the CDC website for a list of frequently asked questions. https://www.cdc.gov/coronavirus/ 2019-ncov/vaccines/faq.html [facility] Patient [facility] Access Instructions: Stay connected with your healthcare team and access your personal medical information anytime with the [facility] Patient Portal. If you would like a full copy of your medical records please contact the [facility] Medical Records Department Wednesday through Wednesday between 8a.m. and 4:30p.m. Please follow the directions below to access the portal: 1.Access the email account you provided upon registration to the [facility].2.Look for an invitation email from [facility].3.Open the email and access the invitation link: Accept Invitation to [facility]4.Fill in the required asif to create your account. Sign into [email or web address] with your username and password that you created in the above steps to stay up to date. You can then view a summary of results, a summary of your visits, and the ability to download your summaries to your computer or send the information securely to a physician. Remember that your healthcare information is confidential, so carefully consider who you will allow to register on the [employer] Patient Portal for access to your information. You can also access the [employer] Patient Portal on the What[employer]. Simply click on Health Records under Health Data and then click on the [employer] logo. HOW TO SAFELY DISPOSE OF PRESCRIPTION MEDICATIONS Please use one of the following methods to safely dispose of your unused medications. 1.Use a drug disposal kit: the drug disposal pouch allows you to safely discard your old and unused drugs. Ask your nurse to give you one when you are discharged.2.Visit a local take-back location: Many local pharmacies and police departments have programs that collect old and unwanted prescription drugs. Call your local pharmacy or go to http://Phoneplus.[employer]/5Z6Ug2w to find one close to you.3.Make use of household items: Use cat litter or old coffee grounds to dispose medications if other options are not available. Mix your drugs with these household products, seal them in an airtight container and throw it into the garbage. Call [facility]: [phone] to be sure your drugs can be disposed of in this way. Some medicines may require a different approach.4.Never flush your medications down the toilet. IF YOU HAVE BEEN PRESCRIBED AN OPIOIDS FOR PAIN If you have been prescribed an opioid (such as hydrocodone, oxycodone or morphine), it is critical to understand the possible side effects and risks of opioid pain medications. Even when taken as directed, opioids can have several side effects including: Tolerance, meaning you might need to take more of a medication for the same pain relief. Nausea, vomiting and/or constipation. Sleepiness, dizziness, dry mouth, confusion, depression or itching. Physical dependence, meaning you have withdrawal symptoms when a medication is stopped ? this can develop within a few days. KNOW YOUR RESPONSIBILITIES It is important to know exactly how much and how often to take the opioid pain medications you are prescribed. Never take opioids in higher amounts or more often than prescribed. Do not combine opioids with alcohol or other drugs that cause drowsiness, such as benzodiazepines, also known as benzos, including diazepam and alprazolam, muscle relaxants or sleep aids. Never sell or share prescription opioids. This is illegal. Store opioids in a secure place and out of reach of others (including children, family, friends and visitors). The last page(s) of this document has been signed and retained as a CHART COPY Signatures Patient Education Materials Pneumonia (Adult) Medication Leaflets azithromycin (oral/injection), albuterol inhalation, homatropine and hydrocodone My discharge plan and instructions have been reviewed and explained to me and I,LAMBERTO JUNIOR understand my current condition and have read and understand these discharge instructions. I have received a written copy of the plan/instructions. If I have questions, I am aware that I should contact my doctor. 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 There are minimal ill-defined areas of suspected infiltrate at the left mid lung, new since the previous exam. No right-sided infiltrate seen. No pleural fluid. No acute osseous finding. IMPRESSION: Minimal or developing infiltrate at the left mid lung. Early pneumonia is considered. Follow-up recommended. Interpreted by: Pacheco Monet MD Preliminary Report By: Pacheco Monet MD Electronically signed By Pacheco Monet MD Dictated Date: 05/22/2023 12:39:24 PM Prelim Date: 05/22/2023 12:40:28 PM Sign Date: 05/22/2023 12:40:28 PM Ordering Provider: JASMYNE PAGE [facility] 05-22-2023 SARS-CoV-2 (COVID-19) RNA MINERVA+probe Ql (Nph) Negative *NA* (05/22/23 12:27 PM) AO Auto Urine SS 03-24-2023 Evaluation + Plan note Future Scheduled TestsThyroid Stimulating Hormone 03/24/23Urinalysis Microscopic 06/09/22Complete Blood Count 03/24/23Lipid Profile 03/24/23Vitamin D Level 03/24/23Complete Metabolic Panel 03/24/23 [facility] 10-27-2022 Note ORIGINAL EXAMINATION: BONE DENSITOMETRY10/27/2022 11:06 am TECHNIQUE: Dual energy bone densitometry lumbar spine and left hip. COMPARISON: 06/28/2020 HISTORY: Reason for Exam: screening Osteoporosis screening. FINDINGS: Total bone mineral density of the L1-L4 is 0.653 grams per square centimeters, and T-score being -3.6, indicating that this patient has osteoporosis. BMD change: +3.1%. Bone mineral density of the left femoral neck is 0.669 grams per square centimeters, and T-score being -1.6, indicating that this patient has osteopenia. Total bone mineral density of the left hip is 0.825 grams per square centimeters, and T-score being -1.0, indicating that this patient has normal bone mineral density. BMD change: +6.6%. IMPRESSION: Osteoporosis. Interpreted by: Maribel Spencer MD Preliminary Report By: Maribel Spencer MD Electronically signed By Maribel Spencer MD Dictated Date: 10/27/2022 12:01:35 PM Prelim Date: 10/27/2022 12:03:16 PM Sign Date: 10/27/2022 12:03:16 PM Ordering Provider: OC NGUYEN [facility] 10-27-2022 Note ORIGINAL EXAMINATION: BONE DENSITOMETRY10/27/2022 11:06 am TECHNIQUE: Dual energy bone densitometry lumbar spine and left hip. COMPARISON: 06/28/2020 HISTORY: Reason for Exam: screening Osteoporosis screening. FINDINGS: Total bone mineral density of the L1-L4 is 0.653 grams per square centimeters, and T-score being -3.6, indicating that this patient has osteoporosis. BMD change: +3.1%. Bone mineral density of the left femoral neck is 0.669 grams per square centimeters, and T-score being -1.6, indicating that this patient has osteopenia. Total bone mineral density of the left hip is 0.825 grams per square centimeters, and T-score being -1.0, indicating that this patient has normal bone mineral density. BMD change: +6.6%. IMPRESSION: Osteoporosis. Interpreted by: Maribel Spencer MD Preliminary Report By: Maribel Spencer MD Electronically signed By Maribel Spencer MD Dictated Date: 10/27/2022 12:01:35 PM Prelim Date: 10/27/2022 12:03:16 PM Sign Date: 10/27/2022 12:03:16 PM Ordering Provider: OC [facility] 06-12-2022 Note . MICRO - Microbiology PROCEDURE: Urine Culture [*1] SOURCE: Urine, Clean Catch BODY SITE: COLLECTED DATE/TIME: 06/09/2022 10:27 EST RECEIVED DATE/TIME: 06/10/2022 19:55 EST START DATE/TIME: 06/10/2022 19:56 EST FREE TEXT SOURCE: FINAL REPORTS Final Report [] Verified Date/Time/Personnel: 06/12/2022 08:09 EST >100,000 cfu/ml Escherichia coli PRELIMINARY REPORTS Preliminary Report [] Verified Date/Time/Personnel: 06/11/2022 13:12 EST >100,000 cfu/ml Escherichia coli RICKEY to follow SUSCEPTIBILITY RESULTS Escherichia coli Antibiotic RICKEY Dilut RICKEY Inter Ampicillin <=8 Susceptible Ampicillin/ <=4/2 Susceptible Sulbactam Aztreonam <=4 Susceptible Cefazolin <=2 Susceptible Ciprofloxacin <=0.25 Susceptible Ertapenem <=0.5 Susceptible Gentamicin <=2 Susceptible Imipenem <=1 Susceptible Levofloxacin <=0.5 Susceptible Meropenem <=1 Susceptible Minocycline <=4 Susceptible Nitrofurantoin <=32 Susceptible Trimethoprim/ <=0.5/9.5 Susceptible Sulfa Performing Locations *1: This test was performed at: [facility], [address] [place] [address], [facility] , [facility] ([place]) [place] ADMISSION HISTORY AN D PHYSICIAL CHIEF COMPLAINT: HISTORY OF PRESENT ILLNESS: REVIEW OF SYSTEMS: ACTIVE PROBLEMS: (18) Arthritis (3151173) Back muscle spasm (519055697) Breast cancer screening (147100790) Cervical cancer screening (9939505425) Colon cancer screening (517011869) Depression ([id number]) Dyshydrosis (1579139768) GERD without esophagitis (1233523509) Heart murmur (893311835) HLD (hyperlipidemia) (36983831) IBS (irritable bowel syndrome) (03755468) Leg cramps (6238643523) DAVID (obstructive sleep apnea) (908042258) Osteoporosis (505956642) Overweight (057815846) Postmenopausal (524338530) Sleep apnea (164930092) Vaginal atrophy (617526684) MEDICATIONS: Active Inpt Meds: None Active PRN Meds: None One Time Meds: None Active IV Meds: Lactated Ringers Infusion 1,000 mL (LR 1,000 mL) Start: 10/31/21 8:10:00 EDT, Rate: 50 mL/hr, 10/31/21 8:10:00 EDT ALLERGIES: (1) NKA FAMILY HISTORY: SOCIAL HISTORY: PHYSICAL EXAM: VITALS: NsxdyoErhvSNLjdweAMGcL7JTR3PwgkPt(kg) 10/31 08:0236.3136/[id number]/13 89.0 24 Hr Tmax: 36.3 at 10/31 08:02 36 Hr Tmax: 36.3 at 10/31 08:02 Vital Signs are the last 5 in the past 48 hours. Weights display the last 5 within 7 days. Initial Wt: 10/31 89.0 kg 196 lb Current Wt: 10/31 89.0 kg 196 lb GENERAL: HEENT: CARDIOVASCULAR: RESPIRATORY: ABDOMEN: EXREMETIES: NEUROLOGICAL: PSYCHIATRIC: LABS: No 36hr Lab Data DIAGNOSTICS: IMPRESSION: PLAN: History and Physical Update I have examined the patient; reviewed the H&P and there are no changes to the H&P unless noted below. Future Appointments Appointment Date:03/10/2022 03:30:00 PM Scheduled Provider:OC NGUYEN DO Location:[facility] Appointment Type:PC OV Future Scheduled Tests Laboratory* Vitamin D Level 02/11/21 Radiology* XR Spine Lumbar AP/LAT 10/21/21 [facility] 05-13-2022 Hospital Discharge instructions Patient Education 10/31/2021 10:27:56 Helicobacter Pylori Antibodies Test Helicobacter Pylori Antibodies Test Why am I having this test? This test is used to check for a type of bacteria called Helicobacter pylori (H. pylori). H. pylorican be found in the cells that line the stomach. Having high levels of H. pylori in your stomach puts you at risk for: Stomach ulcers and small bowel ulcers. Long-term (chronic) inflammation of the lining of the stomach. Ulcers in the part of the body that moves food from the mouth to the stomach (esophagus). Stomach cancer if the infection is not treated. Most people with H. pylori in their stomach have no symptoms. Your health care provider may ask youto have this test if you have symptoms of a stomach ulcer or small bowel ulcer, such as stomach pain before or after eating, heartburn, or nausea after eating. What is being tested? This test checks your blood for antibodies to the H. pylori bacteria. Antibodies are proteins made by your immune system to fight germs and infection. The test checks for antibodies that the immune system produces in response to infection with H. pylori. What kind of sample is taken? A blood sample is required for this test. It is usually collected by inserting a needle into a blood vessel or by sticking a finger with a small needle. Tell a health care provider about: All medicines you are taking, including vitamins, herbs, eye drops, creams, and hkcb-bko-ftvdnzw medicines. How are the results reported? Your test results will be reported as values that are categorized as positive, negative, or equivocal. Equivocal means that your results are neither positive nor negative. Your health care provider will compare your results to normal ranges that were established after testing a large group of people (reference ranges). Reference ranges may vary among labs and hospitals. For this test, common reference ranges for the two types of antibodies that may be tested are: IgG antibodies: ?Less than 0.75 units/mL. This is negative. ?Greater than or equal to 1 unit/mL. This is positive. ?0.75 0.99 units/mL. This is equivocal. IgM antibodies: ?Less than or equal to 30 units/mL. This is negative. ?Greater than or equal to 40 units/mL. This is positive. ?30.01 39.99 units/mL. This is equivocal. What do the results mean? Test results that are higher than normal, or positive, may indicate various health conditions, suchas: Short-term or long-term irritation of the stomach lining (gastritis). Small bowel ulcer. Stomach ulcer. Stomach cancer. Talk with your health care provider about what your results mean. Questions to ask your health care provider Ask your health care provider, or the department that is doing the test: When will my results be ready? How will I get my results? What are my treatment options? What other tests do I need? What are my next steps? Summary This test is used to check for a type of bacteria called Helicobacter pylori (H. pylori). Having high levels of H. pylori in your stomach puts you at risk for ulcers in the gastrointestinal tract or stomach cancer. This test checks your blood for antibodies to the H. pylori bacteria. Most people with H. pylori in their stomach have no symptoms. Your health care provider may ask youto have this test if you have symptoms of a stomach ulcer or small bowel ulcer, such as stomach pain before or after eating, heartburn, or nausea after eating. Talk with your health care provider about what your results mean. This information is not intended to replace advice given to you by your health care provider. Make sure you discuss any questions you have with your health care provider. Document Released: 07/01/2005 Document Revised: 05/20/2018 Document Reviewed: 01/18/2018 [employer] Patient Education 2020 [employer] 10/31/2021 10:27:53 Moderate Conscious Sedation, Adult, Care After Moderate Conscious Sedation, Adult, Care After These instructions provide you with information about caring for yourself after your procedure. Your health care provider may also give you more specific instructions. Your treatment has been plannedaccording to current medical practices, but problems sometimes occur. Call your health care provider if you have any problems or questions after your procedure. What can I expect after the procedure? After your procedure, it is common: To feel sleepy for several hours. To feel clumsy and have poor balance for several hours. To have poor judgment for several hours. To vomit if you eat too soon. Follow these instructions at home: For at least 24 hours after the procedure: Do not: ?Participate in activities where you could fall or become injured. ?Drive. ?Use heavy machinery. ?Drink alcohol. ?Take sleeping pills or medicines that cause drowsiness. ?Make important decisions or sign legal documents. ?Take care of children on your own. Rest. Eating and drinking Follow the diet recommended by your health care provider. If you vomit: ?Drink water, juice, or soup when you can drink without vomiting. ?Make sure you have little or no nausea before eating solid foods. General instructions Have a responsible adult stay with you until you are awake and alert. Take jqwu-dwy-idgirhu and prescription medicines only as told by your health care provider. If you smoke, do not smoke without supervision. Keep all follow-up visits as told by your health care provider. This is important. Contact a health care provider if: You keep feeling nauseous or you keep vomiting. You feel light-headed. You develop a rash. You have a fever. Get help right away if: You have trouble breathing. This information is not intended to replace advice given to you by your health care provider. Make sure you discuss any questions you have with your health care provider. Document Released: 03/28/2014 Document Revised: 05/20/2018 Document Reviewed: 09/26/2016 [employer] Patient Education 2020 [employer] 10/31/2021 10:27:45 Esophagogastroduodenoscopy, Care After (67213) Esophagogastroduodenoscopy, Care After Refer to this sheet in the next few weeks. These instructions provide you with information about caring for yourself after your procedure. Your health care provider may also give you more specific instructions. Your treatment has been planned according to current medical practices, but problems sometimes occur. Call your health care provider if you have any problems or questions after your procedure. What can I expect after the procedure? After the procedure, it is common to have: A sore throat. Nausea. Bloating. Dizziness. Fatigue. Follow these instructions at home: Do not eat or drink anything until the numbing medicine (local anesthetic) has worn off and your gag reflex has returned. You will know that the local anesthetic has worn off when you can swallow comfortably. Do not drive for 24 hours if you received a medicine to help you relax (sedative). If your health care provider took a tissue sample for testing during the procedure, make sure to get your test results. This is your responsibility. Ask your health care provider or the department performing the test when your results will be ready. Keep all follow-up visits as told by your health care provider. This is important. Contact a health care provider if: You cannot stop coughing. You are not urinating. You are urinating less than usual. Get help right away if: You have trouble swallowing. You cannot eat or drink. You have throat or chest pain that gets worse. You are dizzy or light-headed. You faint. You have nausea or vomiting. You have chills. You have a fever. You have severe abdominal pain. You have black, tarry, or bloody stools. This information is not intended to replace advice given to you by your health care provider. Make sure you discuss any questions you have with your health care provider. Document Released: 05/24/2013 Document Revised: 11/12/2016 Document Reviewed: 04/30/2016 [employer] Interactive Patient Education 2019 [employer] Follow Up Care 10/20/2021 12:18:34 With:NAZ HAN MD Address: [address] [place] [phone] When: Unknown Comments:Results will be called to you within 2 weeks. Call office with any further problems. [facility] 08-24-2021 Evaluation + Plan note Future Scheduled Tests Laboratory* Vitamin D Level 02/11/21 [facility] Evaluation + Plan note Future Appointments Appointment Date:08/29/2021 03:00:00 PM Scheduled Provider:OC NGUYEN DO Location:[facility] Appointment Type:PC OV Future Scheduled Tests Laboratory* Vitamin D Level 02/11/21 [facility] Evaluation + Plan note Future Appointments Appointment Date:03/10/2022 03:30:00 PM Scheduled Provider:OC NGUYEN DO Location:[facility] Appointment Type:PC OV Future Scheduled Tests Laboratory* Vitamin D Level 02/11/21 [facility] Evaluation + Plan note Future Appointments Appointment Date:10/24/2021 03:15:00 PM Scheduled Provider: Location:[facility] Appointment Type:PC Nurse Appointment Date:03/10/2022 03:30:00 PM Scheduled Provider:OC NGUYEN DO Location:[facility] Appointment Type:PC OV Future Scheduled Tests Laboratory* Vitamin D Level 02/11/21 Radiology* XR Spine Lumbar AP/LAT 10/21/21 [facility] Evaluation + Plan note Future Appointments Appointment Date:09/22/2022 08:30:00 AM Scheduled Provider:OC NGUYEN DO Location:[facility] Appointment Type:PC OV Future Scheduled Tests Laboratory* Ferritin 04/07/22 * Iron Level 04/07/22 * Thyroid Stimulating Hormone 04/07/22 * Urinalysis Microscopic 06/09/22 * Complete Blood Count 04/07/22 * Lipid Profile 04/07/22 * Vitamin D Level 04/07/22 * Complete Metabolic Panel 04/07/22 Radiology* XR Spine Lumbar AP/LAT 10/21/21 [facility] Evaluation + Plan note Future Appointments Appointment Date:07/14/2022 07:00:00 AM Scheduled Provider:OC NGUYEN DO Location:[facility] Appointment Type:PC OV Pre Op Appointment Date:09/22/2022 08:30:00 AM Scheduled Provider:OC NGUYEN DO Location:[facility] Appointment Type:PC OV Future Scheduled Tests Laboratory* Ferritin 04/07/22 * Iron Level 04/07/22 * Thyroid Stimulating Hormone 04/07/22 * Urinalysis Microscopic 06/09/22 * Complete Blood Count 04/07/22 * Lipid Profile 04/07/22 * Vitamin D Level 04/07/22 * Complete Metabolic Panel 04/07/22 [facility] Evaluation + Plan note Future Appointments Appointment Date:09/22/2022 08:30:00 AM Scheduled Provider:OC NGUYEN DO Location:[facility] Appointment Type:PC OV Future Scheduled Tests Laboratory* Ferritin 04/07/22 * Iron Level 04/07/22 * Thyroid Stimulating Hormone 04/07/22 * Urinalysis Microscopic 06/09/22 * Complete Blood Count 04/07/22 * Lipid Profile 04/07/22 * Vitamin D Level 04/07/22 * Complete Metabolic Panel 04/07/22 [facility] Evaluation + Plan note Future Appointments Appointment Date:09/22/2022 10:00:00 AM Scheduled Provider:OC NGUYEN DO Location:[facility] Appointment Type:PC OV Future Scheduled Tests Laboratory* Urinalysis Microscopic 06/09/22 [facility] Evaluation + Plan note Future Appointments Appointment Date:03/23/2023 10:00:00 AM Scheduled Provider:OC NGUYEN DO Location:[facility] Appointment Type:PC OV Future Scheduled Tests Laboratory* Thyroid Stimulating Hormone 03/24/23 * Urinalysis Microscopic 06/09/22 * Complete Blood Count 03/24/23 * Lipid Profile 03/24/23 * Vitamin D Level 03/24/23 * Complete Metabolic Panel 03/24/23 [facility] Hospital course Narrative No data available for this section [facility] Hospital Discharge instructions No data available for this section [facility] Progress note No data available for this section [facility] Summary Purpose Family History No Family History Records Found No data available for this section No Family History Records Found Advance Directives No Advanced Directives Records FoundNo Advanced Directives Records Found Additional Source Comments INFORMATION SOURCE (unrecogn ized section and content) DATE CREATED AUTHOR AUTHOR'S ANTONI ATION 05/28/2023 [facility] ([place]) Care Team (unrecognized sect ion and content) Personnel Name: OC NGUYEN DO Address: [address] [place] [address] Name: [facility] Gum Puller Ronda L Name: Payal Strong Name: [facility] Puller Danielle Personnel Name: OC NGUYEN DO Address: [address] [place] [address] Name: [facility]um [employer]er Ronda Payne Name: Payal Strong Name: [facility] Danielle Care Team Personnel Name: OC NGUYEN DO Position: P4 Physician - Primary Care Member Role: Primary Care Physician Address: Address: [address] [place] [address] Name: Payal Strong Position: P3 Scheduling - Gum Puller Advanced Member Role: Other Care Team Related Persons Name: MARK JUNIOR Address: Home [address] [place] [address] Name: MARK JUNIOR Address: Home [address] [place] [address] Name: NAY THOMPSON Address: Home [address] [place], [place] [id number] Name: NAY LOMBARDO Name: NAY LOMBARDO Name: NAY LOMBARDO Name: NAY LOMBARDO Name: NAY LOMBARDO Care Team Personnel Name: OC NGUYEN DO Position: P4 Physician - Primary Care Member Role: Primary Care Physician Address: Address: [address] [place] [address] Name: Payal Strong Position: P3 Scheduling - Gum Puller Advanced Member Role: Other Care Team Related Persons Name: MARK JUNIOR Address: Home [address] [place] [address] Name: MARK JUNIOR Address: Home [address] [place] [address] Name: NAY THOMPSON Address: Home [address] [place] [phone] [place] Name: NAY LOMBARDO Name: NAY LOMBARDO Name: NAY LOMBARDO Name: NAY LOMBARDO Name: NAY LOMBARDO Care Team Personnel Name: OC NGUYEN DO Position: P4 Physician - Primary Care Member Role: Primary Care Physician Address: Address: [address] [place] [address] Name: Payal Strong Position: P3 Scheduling - Gum Puller Advanced Member Role: Other Care Team Related Persons Name: MARK JUNIOR Address: Home [address] [place] [address] Name: MARK JUNIOR Address: Home [address] [place] [address] Name: NAY THOMPSON Address: [address] [phone] [place] Name: NAY LOMBARDO Name: NAY LOMBARDO Name: NAY LOMBARDO Name: NAY LOMBARDO Name: NAY LOMBARDO Care Team (unrecognized sect ion and content) Care Team Personnel Name: OC NGUYEN DO Position: P4 Physician - Primary Care Member Role: Primary Care Physician Address: Address: [address] [place] [address] Name: Payal Strong Position: P3 Scheduling - Gum Puller Advanced Member Role: Other Name: [facility] Gum [employer]er Ronda Payne Position: P3 Scheduling - Gum Puller Advanced Member Role: Other Care Team Related Persons Name: MARK JUNIOR Address: Home [id number] [place] [address] Name: MARK JUNIOR Address: Home [id number] [place] [address] Name: NAY THOMPSON Address: Home [address] [place] [phone] [place] Name: NAY LOMBARDO Name: NAY LOMBARDO Name: NAY LOMBARDO Name: NAY LOMBARDO Name: NAY LOMBARDO Care Team Personnel Name: OC NGUYEN DO Position: P4 Physician - Primary Care Member Role: Primary Care Physician Address: Address: [address] [place] [address] Name: Payal Strong Position: P3 Scheduling - Gum Puller Advanced Member Role: Other Name: [facility] Gum Puller Ronda L Position: P3 Scheduling - Gum Puller Advanced Member Role: Other Care Team Related Persons Name: MARK JUNIOR Address: Home [address] [place] [address] Name: MARK JUNIOR Address: Home [address] [place] [address] Name: NAY THOMPSON Address: Home [address] [phone] [place] Name: NAY LOMBARDO Name: NAY LOMBARDO Name: NAY LOMBARDO Name: NAY LOMBARDO Name: NAY LOMBARDO Care Team Personnel Name: OC NGUYEN DO Position: P4 Physician - Primary Care Member Role: Primary Care Physician Address: Address: [address] [place] [address] Name: Payal Strong Position: P3 Scheduling - Gum Puller Advanced Member Role: Other Name: [facility] Gum Puller Ronda L Position: P3 Scheduling - Gum Puller Advanced Member Role: Other Care Team Related Persons Name: MARK JUNIOR Address: Home [address] [place] [address] Name: MARK JUNIOR Address: Home [address] [place] [address] Name: NAY THOMPSON Address: [address] [place], [place] [phone] [place] Name: NAY LOMBARDO Name: NAY LOMBARDO Name: NAY LOMBARDO Name: NAY LOMBARDO Name: NAY LOMBARDO FOR RECORDS PERTAINING TO PATIENTS WHO ARE OR HAVE BEEN ENROLLED IN A CHEMICAL DEPENDENCY/SUBSTANCEABUSE PROGRAM, SOME INFORMATION MAY BE OMITTED. This clinical summary was aggregated from multiple sources. Caution should be exercised in using it in the provision of clinical care. This summary normalizes information from multiple sources, and as a consequence, information in this document may materially change the coding, format and clinical context of patient data. In addition, data may be omitted in some cases. CLINICAL DECISIONS SHOULD BE BASED ON THE PRIMARY CLINICAL RECORDS. [facility]. provides no warranty or guarantee of the accuracy or completeness of information in this document.
--- NOTE | 2023-06-17 14:56 | ED.VIS.LOWEX ---
HPI History of Present Illness Chief Complaint: Laceration Informant: patient Narrative Narrative: Patient was working at home. She kind of tripped fell and part of the sweeper cut her right knee. Last tetanus was 5 to 7 years ago. She is not on blood thinners or immunosuppressant drugs. She has had surgery in this knee but it was a meniscal repair many years ago. No other injuries. PFSH PFSH Allergy/AdvReac Type Severity Reaction Status Date / Time No Known Allergies Allergy Verified 06/17/23 13:38 Social History Smoking Status: Never smoker ROS ROS ED Constitutional Constitutional ED: Denies chills or fever(s) Gastrointestinal Gastrointestinal: Denies nausea or vomiting Musculoskeletal Musculoskeletal: Reports arthralgias Integumentary Reports other Details: Laceration as in history of present illness. Neurologic Neurologic: Denies paresthesias or weakness Hematologic/Lymphatic Hematologic/Lymphatic: Denies easy bleeding or easy bruising EXAM Physical Exam Narrative Exam Narrative: General: Patient awake alert sitting comfortably in bed no acute distress. HEENT: Shows no sign of trauma or injury. This is consistent with history of no head injury. Neck is supple. No pain with motion. Lungs are clear bilaterally and saturations are normal at 97% on room air showing no hypoxia. Heart is regular. Extremities do show a laceration of about 4 cm to the right anterior knee below the patella overlying patellar tendon. No active bleeding. No drainage of fluid from the wound. This does not appear to go deep enough to be in the joint but we cannot be 100% certain with external evaluation. Her extensor mechanism is intact. No pain with motion. Const Vital Signs: 06/17/23 13:39 06/17/23 17:26 Temperature 97.5 F L Temperature Source Temporal Pulse Rate 99 71 Respiratory Rate 16 16 Blood Pressure 127/81 H Blood Pressure Mean 96 Pulse Ox 97 97 Oxygen Delivery Method Room Air MDM MDM MDM Narrative Medical decision making narrative: My independent interpretation of the 4 view x-ray of the patient's right knee shows no acute fracture or foreign body. I can see a tissue defect on the lateral film. But the air does not appear to go past the patellar tendon. There is no sign of intra-articular air. Final reading is pending. Final reading is no acute abnormality. Procedure: Suture laceration: LET was applied to the wound as the patient was very concerned about anesthesia. We let this rest for about 30 minutes. There was a white ring around the wound. I then used 5 cc of a 50% mixture of 1% lidocaine without epinephrine and 0.5% bupivacaine locally. Good anesthesia was achieved. The area around the wound of the entire knee was scrubbed. It was sterilely draped. It was copiously scrubbed and irrigated after this. Irrigated with about 400 cc of saline. Wound was examined without blood. No sign of perforation of the joint. I did suture it with 3 deep 4-0 Vicryl. It was then sutured on the outside with 7 interrupted 4-0 Ethilon. She tolerated this well. We discussed care, reasons to return, signs of infection and timing of removal of the sutures. Radiography Diagnostic Testing: Clinical Impression(s) from Imaging Studies Knee X-Ray 06/17/23 15:12 IMPRESSION: No acute abnormality. DJD. Electronically Signed: Adiel Boswell MD at 15:56 EST , Procedures Lacerations Right knee: Comment: See MDM Discharge Plan Triage Chief Complaint: Laceration ED Provider: Francisco Juan Dx/Rx/DC Orders Clinical Impression: Fall from slip, trip, or stumble, Contusion of right knee, Laceration of knee, right Instructions: ED Laceration, All Closures Primary Care Provider: Olinda Humphrey Referrals: Olinda Humphrey DO [Primary Care Provider] - 10-14 Days suture removal Disposition Disposition: Home, Self Care Discharge Date/Time: 06/17/23 17:27
--- NOTE | 2023-06-17 15:12 | RAD_ITS ---
EXAM: XR RIGHT KNEE COMPLETE, 4 OR MORE VIEWS CLINICAL INDICATION: trauma TECHNIQUE: Four or more views of the right knee. COMPARISON: No relevant prior studies available. FINDINGS: BONES/JOINTS: No acute fracture, subluxation or joint effusion. Mild narrowing of the medial knee joint compartment. Mild osteophytosis. SOFT TISSUES: Normal. No soft tissue swelling or gas. No radiopaque foreign body. RAD/Knee 4 or More Views IMPRESSION: No acute abnormality. DJD. Electronically Signed: Adiel Boswell MD at 15:56 EST ,
[2023-06-17] MEDS: Lidocaine/Epi/Tetracaine 50 ML 1 APPLIC TOPICAL (15:58)
[2023-06-17] MEDS: Bupivacaine Mpf 0.5% 30 ML VIAL INFILT (16:00)
[2023-06-17] MEDS: Lidocaine 1% (20 ml mdv) 20 ML Vial INFILT (16:00)
[2023-06-17 17:26] VITALS: PULSE 71; RESP 16; O2SAT 97
== END 2023-06-17 17:27 | disposition home or self-care (01) ==
PROVIDERS: Emergency Provider Emergency Medicine; Visit Provider Emergency Medicine
DX: S81.011A Laceration without foreign body, right knee, initial encounter (principal); W01.198A Fall on same level from slipping, tripping and stumbling with subsequent striking against other object, initial encounter; Y93.89 Activity, other specified; Y92.009 Unspecified place in unspecified non-institutional (private) residence as the place of occurrence of the external cause; S80.01XA Contusion of right knee, initial encounter
CPT/HCPCS: 12002; 73564; 99283

== ENCOUNTER 2023-09-23 16:00 | Outpatient (RCR) | payer BC, SELFPAY ==
--- NOTE | 2023-08-20 07:38 | HP.PTEVAL ---
Patient's Visit Information Visit Information Visit Information: LAMBERTO JUNIOR is a 62 year old F referred to Physical Therapy by Dr. Jb Cardenas DO with a diagnosis of L knee patellar tendonitis. Date of Evaluation: 08/20/23 Physical Therapist: Quentin Navarro, DPT, OCS, CSCS Visit Plan Frequency: 2-3x /Week Duration: 4-6 Weeks Plan: 3x/week x 4-6 weeks for LE stretch and strength starting in pool and working to I, consider TENS and STM if not improving after 2 weeks. Given ITB and quad stretch as HEP at Subjective Subjective: L TKA one year ago. Fell on it in May. Has pain in front since. Fell tripping on hose on sweeper. Landed on both knees. No balance problem. L knee anterior pain since. Pain is intermittent, mostly on steps and if on feet all day. 0-6/10 pain. Sleeping OK. 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 Can do job, it just hurts. Activities at home are getting done but painful. Basic ADLs are Ok. hobbies: swimming. Pain L knee: Pain Intensity (Out of 10): 1 Pain Intensity Range: 0 and 6 Objective Objective: Walks with slight L knee antalgia but I. Trasnfers without UE chair and bed I. Steps reciprocally up with L knee pain, descends with eccentric weakness L and pain but I. quads and ITB moderately tight B Tender to palpation paellar ligament and tib tub L mildly. 0-120 AROM L knee adn 0-133 R knee (TKA on L one year ago). Pain at end range L knee flexion only. reflexes 2/3 patella adn achilles B Sensation WNL to gross light touch LE B LE strength hips abd, ext 3+, flexion 4-, knee flexion and extension 4- B without much pain. ankles 4 without pain. + patellar grind L, - ant drawer, - post sag, - varus and valgus, Balance/Special Test Scores Functional Gait Assessment Score: 28 % Disability: 6.6700 Lower Extremity Functional Score: 51 Goals Goal 1:: Steps reciprocally without pain or antalgia L knee Goal Time Frame: 4-6 Weeks Goal 2:: I appropriate HEP to limit future problems Goal Time Frame: 4-6 Weeks Goal 3:: Pt report 90% improvement in overall pain to 1/10 at worst Goal Time Frame: 4-6 Weeks Goal 4:: LEFS 55 Goal Time Frame: 4-6 Weeks Rehabilitation Potential Physical Therapy Diagnosis: L knee pain limiting comfortable funciton Rehabilitation Potential: Good Anticipated Interventions Patient/Client Instruction: Educate patient on: Condition and Plan of Care For the Purpose of:: To decrease pain, To improve nutrient delivery to tissue, To improve muscle performance and motor function and To increase tolerance to activity/condition/position Therapeutic Exercise to Include: Strength training, Flexibilty training, In an aquatic setting and Active ROM For the Purpose of:: To decrease pain, To increase ROM, To improve nutrient delivery to tissue, To improve muscle performance and motor function and To increase tolerance to activity/condition/position Manual Therapy Techniques to Include: Soft tissue mobilization For the Purpose of:: To decrease pain, To increase ROM and To improve nutrient delivery to tissue TENS: Yes Cryotherapy (ice pack, ice massage): Yes For the Purpose of:: To decrease pain, To increase ROM and To improve nutrient delivery to tissue Text: Thank you for the opportunity to evaluate your patient. For Medicare and Medicare HMO plans, please review the plan of care and approve it. It will need to be FAXED BACK to us at [phone] for Medicare purposes. For Medicare only, by signing this I certify the plan of care. Please let me know if there are questions or concerns regarding this plan of care. Physician Signature: Date:
--- NOTE | 2023-09-24 07:16 | HP.PTDCSUM ---
Discharge Summary D/C summary: It has been my pleasure to treat LAMBERTO JUNIOR referred by Dr. Jb Cardenas DO, with the diagnosis of L knee patellar tendonitis for a total of 13 visit(s). Discharge Date: 09/24/23 Please see the following information for a summary of their discharge status. Subjective Subjective: Doing well. Pool has really helped, Ready to do on her own. 95% better, still stiff at times. Doing exercises at hotel pool already. No f/u with doctor. Activities are normal. Still slightly worse at the end of work week. Sleep is OK. Pain L knee: Pain Intensity (Out of 10): 0 L heel: Pain Intensity (Out of 10): 0 Overall Improvement % Improvement: 95 Objective Objective/Function: Full AROM L knee, less painful than R.. Solid SLR flexion, slightly weak abduction. Walking and steps reciprocal without rail and without antalgia, moving well. Goals Goal 1:: Steps reciprocally without pain or antalgia L knee Goal Progress: Goal Met Goal 2:: I appropriate HEP to limit future problems Goal Progress: Goal Met Goal 3:: Pt report 90% improvement in overall pain to 1/10 at worst Goal Progress: Goal Met Goal 4:: LEFS 55 Goal Progress: Goal Met Plan Plan: d/c to I pool program. D/C Information d/c sentence: If there are questions or concerns regarding this patient's physical therapy, please feel free to call me at [phone]. Thank you for the referral of this patient. Sincerely, Quentin Navarro, DPT, OCS, CSCS Balance/Gait/Functional tests Balance/Special Test Scores Functional Gait Assessment Score: 28 % Disability: 6.6700 Lower Extremity Functional Score: 70 Improvement % Improvement: 95
== END 2023-09-23 19:00 | disposition home or self-care (01) ==
LOC: PT 16:00
PROVIDERS: Referring Provider Orthopaedic Surgery; Visit Provider Orthopaedic Surgery
DX: M76.52 Patellar tendinitis, left knee (principal); Z96.652 Presence of left artificial knee joint
CPT/HCPCS: 97113; 97161; 97530

== ENCOUNTER 2024-07-04 05:31 | Day surgery (SDC) | payer BC, SELFPAY ==
--- NOTE | 2024-06-30 17:22 | PAT.ANESEVAL ---
Pre-Assessment Diagnosis/Proposed Procedure Planned Operative Procedure(s): EGD Anesthesia History Anesthesia History - video games storywriter: Anesthesia History - video games storywriter Hx Hospitalization No 06/30/24 14:00 Any Problems With Anesthesia Yes: NAUSEA 06/30/24 14:00 Cholinesterase deficiency No 06/30/24 14:00 You/Your Family Experience No 06/30/24 14:00 fever (hyperthermia) with Relationship Recent Exposure to Contagious Disease Does patient have nerve No 06/30/24 14:00 stimulator Patient instructed to have device shut off --Does patient have Pacemaker or ICD? When Was Last Pacemaker Check QUESTION #4 FULL TEXT: You/Your Family Experience fever (hyperthermia) with Anesthesia Last Oral Intake Last Oral intake: Last Oral Intake NPO since Meds taken in AM with sips of water? Meds patient instructed to take am of surgery PONV PONV - video games storywriter: PONV - video games storywriter Female Yes 06/30/24 14:00 HX of Motion Sickness No 06/30/24 14:00 HX of N/V After Surgery Yes 06/30/24 14:00 Non-Smoker Yes 06/30/24 14:00 Duration of Surgery greater No 06/30/24 14:00 than 60 minutes Number of Risk Factors 3 06/30/24 14:00 PONV Score Moderate Risk 06/30/24 14:00 Height & Weight Height & Weight: Anesthesia: Height & Weight Height 5 ft 6 in 06/17/23 13:39 Respiratory Assessment Respiratory Assessment - video games storywriter: Respiratory Tract Infection Hx - video games storywriter Hx Respiratory Tract Infection No 06/30/24 14:00 STOP Sleep Apnea STOP Sleep Apnea - video games storywriter: STOP Sleep Apnea - video games storywriter Hx Hypertension No 06/30/24 14:00 Hx Sleep Apnea Yes 06/30/24 14:00 CPAP No: DOES NOT WEAR 06/30/24 14:00 BIPAP No 06/30/24 14:00 Do you snore loudly (louder than talking or can be heard Do you often feel tired/ fatigued/ sleepy during daytime? Has anyone observed you stop breathing during sleep? STOP Results Positive 06/30/24 14:00 QUESTION #5 FULL TEXT : Do you snore loudly (louder than talking or can be heard through closed doors)? 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 Specify any problems Hx of Preganancy in last 3 No 06/30/24 14:00 Months Nurse Filling Out Transfusion [email or web address] 06/30/24 14:00 & Questions: Date: 06/30/24 06/30/24 14:00 Time: 14:03 06/30/24 14:00 Patient unable to answer at this time (ie. confused, unrespo /Reproduction History /Reproductive History - video games storywriter: /Reproductive Hx- video games storywriter Hx Now Gestational Age (in weeks): EDC: Hx Hx Para Hx Section SAB PFSH Medical History (Updated 06/30/24 @ 14:12 by Star Wills) Cardiology follow-up encounter History of echocardiogram Wears glasses Arthritis Sleep apnea Former smoker Gastric reflux Heart murmur Home Medications ?Medication ?Instructions ?Recorded ?Last Taken ?Type acetaminophen 500 mg capsule 500 mg PO Q6H PRN fever or pain 06/08/24 Unknown History famotidine 20 mg tablet (Acid 20 mg PO BID 06/30/24 06/30/24 History Controller) Allergy/AdvReac Type Severity Reaction Status Date / Time No Known Allergies Allergy Verified 06/30/24 13:58 Surgical History Tubal ligation status Hx laparoscopic cholecystectomy H/O: hysterectomy History of total left knee replacement Social History Smoking Status: Former smoker Audit: Pertinent Findings Pertinent Findings EKG Perinent findings: July 18, 2022. Sinus rhythm. Probable left atrial enlargement. Echo (EF%) pertinent findings: June 20, 2024. Ejection fraction is 65%. No aortic stenosis is noted. Recommendation Anesthesia Recommendation Anesthesia recommendation: OPTIMIZED for anesthesia
[2024-07-04] VITALS (8 sets, daily range): BP systolic 92–112; BP diastolic 58–86; PULSE 16–88; RESP 16–17; TEMP 36.4–36.7; O2SAT 93–100; BMI 32.0
--- NOTE | 2024-07-04 06:26 | PCM.PRE.AN2 ---
ASA Classification* ASA Classification ASA Classification: 2 Assessment & Plan Anesthesia* Anesthesia Assessment Anesthesia Assessment: Discussed sedation and/or anesthesia options, risks, benefits, and alternatives with patient/parents/legal guardian/POA. Questions invited. The patient/parents/legal guardian/POA seems to understand and agrees to proceed with anesthesia plan. Reviewed the physical assessment, medical history, allergy history and patient home medications list prior to surgery/procedure/anesthetic and documented any changes. Performed airway and anesthesia risk assessments. Anesthesia Type Anesthesia Type: MAC History Source History Obtained from:: Patient and Chart Anesthesia Focused Assessment* Temperature: 98.1 F Pulse Rate: 88 Blood Pressure: 112/86 Respiratory Rate: 17 Pulse Ox: 100 Oxygen Delivery Method: Room Air Airway Assessment Mouth opens: >3 cm Mallampati Score: I Teeth Condition: Caps/Crowns (Patient has a couple caps. They are tight.) Neck Range of motion (ROM): Full ROM Focused Labs Anesthesia Preop lab: CBC CHEMISTRY COAG Pre-Assessment Diagnosis/Proposed Procedure Planned Operative Procedure(s): EGD Anesthesia History Anesthesia History - voice intercept technician: Anesthesia History - voice intercept technician Hx Hospitalization No 06/30/24 14:00 Any Problems With Anesthesia Yes: NAUSEA 06/30/24 14:00 Cholinesterase deficiency No 06/30/24 14:00 You/Your Family Experience No 06/30/24 14:00 fever (hyperthermia) with Relationship Recent Exposure to Contagious No 07/04/24 05:56 Disease Does patient have nerve No 06/30/24 14:00 stimulator Patient instructed to have device shut off --Does patient have Pacemaker No 07/04/24 05:56 or ICD? When Was Last Pacemaker Check QUESTION #4 FULL TEXT: You/Your Family Experience fever (hyperthermia) with Anesthesia Last Oral Intake Last Oral intake: Last Oral Intake NPO since 00:00 07/04/24 05:56 Meds taken in AM with sips of No 07/04/24 05:56 water? Meds patient instructed to take am of surgery PONV PONV - voice intercept technician: PONV - voice intercept technician Female Yes 06/30/24 14:00 HX of Motion Sickness No 06/30/24 14:00 HX of N/V After Surgery Yes 06/30/24 14:00 Non-Smoker Yes 06/30/24 14:00 Duration of Surgery greater No 06/30/24 14:00 than 60 minutes Number of Risk Factors 3 06/30/24 14:00 PONV Score Moderate Risk 06/30/24 14:00 Height & Weight Height & Weight: Anesthesia: Height & Weight Height 5 ft 6 in 07/04/24 05:56 Weight: 90 kg 07/04/24 05:56 Body Mass Index (BMI) 32.0 07/04/24 05:56 Respiratory Assessment Respiratory Assessment - voice intercept technician: Respiratory Tract Infection Hx - voice intercept technician Hx Respiratory Tract Infection No 06/30/24 14:00 STOP Sleep Apnea STOP Sleep Apnea - voice intercept technician: STOP Sleep Apnea - voice intercept technician Hx Hypertension No 06/30/24 14:00 Hx Sleep Apnea Yes 06/30/24 14:00 CPAP No: DOES NOT WEAR 06/30/24 14:00 BIPAP No 06/30/24 14:00 Do you snore loudly (louder than talking or can be heard Do you often feel tired/ fatigued/ sleepy during daytime? Has anyone observed you stop breathing during sleep? STOP Results Positive 06/30/24 14:00 QUESTION #5 FULL TEXT : Do you snore loudly (louder than talking or can be heard through closed doors)? 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 Specify any problems Hx of Preganancy in last 3 No 06/30/24 14:00 Months Nurse Filling Out Transfusion [email or web address] 06/30/24 14:00 & Questions: Date: 06/30/24 06/30/24 14:00 Time: 14:03 06/30/24 14:00 Patient unable to answer at this time (ie. confused, unrespo /Reproduction History /Reproductive History - voice intercept technician: /Reproductive Hx- voice intercept technician Hx Now Gestational Age (in weeks): EDC: Hx Hx Para Hx Section SAB PFSH Medical History Cardiology follow-up encounter History of echocardiogram Wears glasses Arthritis Sleep apnea Former smoker Gastric reflux Heart murmur Home Medications ?Medication ?Instructions ?Recorded ?Last Taken ?Type acetaminophen 500 mg capsule 500 mg PO Q6H PRN fever or pain 06/08/24 Unknown History famotidine 20 mg tablet (Acid 20 mg PO BID 06/30/24 06/30/24 History Controller) Allergy/AdvReac Type Severity Reaction Status Date / Time No Known Allergies Allergy Verified 07/04/24 05:56 Surgical History Tubal ligation status Hx laparoscopic cholecystectomy H/O: hysterectomy History of total left knee replacement Social History Smoking Status: Former smoker Review of Systems (Anesthesia) ROS Narrative System reviewed and no additional complaints, except as documented.
--- NOTE | 2024-07-04 06:35 | EGD_PTH ---
PATIENT: LAMBERTO JUNIOR LOC: EN U#:[id number] AGE/SX: 63/F ROOM: RE07/04/[address]: Dr. Dg Vargas DO : 1960 BED: DIS: 07/04/2024 SPEC #: [id number] RECD: 07/04/24 10:42 STATUS: VAIBHAV [place] #: [id number] KATHIE: 07/04/24 06:[address]: Dg Vargas DEPT: SURGICAL PATHOLOGY RECD BY: Elisabet Echevarria ENTERED: 07/04/24 11:47 SP TYPE: EGD BIOPSY OT DR: Dr. Olinda Humphrey DO Tissues: A - Duodenum, NOS B - Gastric mucous membrane C - Esophagus, NOS Procedures: Special Stain Group I Surgery Specimen Level IV Alcian Blue/PAS (control) HEADER OPERATION: EGD with biopsy and dilatation PRE-OP DIAGNOSIS: Nausea/vomiting, dysphagia TISSUE SUBMITTED: A- Duodenum biopsy, B- Gastric body biopsy, C- Distal esophagus biopsy MICROSCOPIC DIAGNOSIS A. Duodenum, biopsy: Fragments of duodenal mucosa, no pathologic diagnosis. B. Gastric body, biopsy: Minimal gastritis. See microscopic description and comment. C. Distal esophagus, biopsy: Fragments of gastroesophageal mucosa with focal intestinal metaplasia (goblet cell metaplasia), consistent with Sharma's esophagus. Moderate chronic inflammation and minimal acute inflammation. Negative for dysplasia. See comment. 07/05/2024 COMMENT B. The results of immunohistochemistry for Helicobacter pylori will be reported separately ([id number]). C. Alcian blue/PAS stain with matched control is used in the evaluation of the specimen. Immunohistochemistry ([id number]) for P53 and Ki-67 will be performed and results will be reported separately. MICROSCOPIC DESCRIPTION Slides are reviewed. B. The specimen shows fragments of gastric mucosa with chronic inflammatory cell infiltrates in the lamina propria consisting of lymphocytes and plasma cells, consistent with minimal chronic gastritis. Focal mucosal congestion is also noted. GROSS DESCRIPTION A. Received in fixative is one container labeled with the patient's name and designated Duodenum biopsy. The specimen consists of two irregular fragments of light emerson soft tissue that in aggregate measure 1.0 x 0.4 x 0.2 cm. The specimen is totally submitted in one cassette. B. Received in fixative is one container labeled with the patient's name and designated Gastric body biopsy. The specimen consists of multiple irregular fragments of light emerson soft tissue that in aggregate measure 1.3 x 0.3 x 0.2 cm. The specimen is totally submitted in one cassette. C. Received in fixative is one container labeled with the patient's name and designated Distal esophagus biopsy. The specimen consists of two irregular fragments of light emerson soft tissue that in aggregate measure 0.5 x 0.3 x 0.2 cm. The specimen is totally submitted in one cassette. 07/04/2024 TC:3 CPT:35084r2,98547
--- NOTE | 2024-07-04 06:35 | IMM_PTH ---
PATIENT: LAMBERTO JUNIOR LOC: EN U#:[id number] AGE/SX: 63/F ROOM: RE07/04/[address]: Dr. Dg Vargas DO : 1960 BED: DIS: 07/04/2024 SPEC #: [id number] RECD: 07/04/24 12:52 STATUS: VAIBHAV REQ #: [id number] KATHIE: 07/04/24 06:[address]: Dg Vargas DEPT: IMMUNOHISTOCHEMISTRY RECD BY: Jose Wells ENTERED: 07/04/24 12:52 SP TYPE: IMMUNO OTHR DR: Dr. Olinda Humphrey DO Tissues: B - Gastric mucous membrane C - Esophagus, NOS Procedures: H Pylori (initial) P53 (initial) KI-67 (add) PHYSICIAN & INSTITUTION [place] [id number] SPECIMEN INFORMATION: Tissue Source: B- Gastric body biopsy, C- Distal esophagus biopsy Clinical Info: Nausea/vomiting, dysphagia Specimen Number: [id number] B,C CPT code: 30165z1,28353 METHODOLOGY: Deparaffinized sections of prefer/formalin-fixed tissue or PAP/DQ stained slides are incubated with monoclonal/polyclonal antibodies/oligonucleotide probes. Localization is made via biotin free immunoperoxidase method. Appropriate controls are performed and reacted as expected. Results on target cell population are indicated in the following table: RESULTS: ANTIBODY / CLONE RESULT Block B H Pylori (polyclonal) negative Block C P53 (DO-7) negative (null pattern) Ki-67 (30-9) positive, low These tests were developed and their performance characteristics determined by [facility]. They may not have been cleared or approved by the U.S. Food and Drug Administration. The FDA has determined that such clearance or approval is not necessary. The above immunohistochemical/dualISH markers are ordered and reviewed by the Pathologist. INTERPRETATION: B. Gastric body, biopsy: Negative for Helicobacter pylori organisms. C. Distal esophagus, biopsy: Negative for dysplasia. 07/06/2024
--- NOTE | 2024-07-04 06:44 | PCM.HP.STD ---
HPI - General General Date of Admission: 07/04/24 Date of Service: 07/04/24 Chief Complaint: dysphagia HPI Narrative LAMBERTO JUNIOR, is a 63 F who presents here today for issues with epigastric pain and nausea. This has been going on for some time now. SHe feels like food is getting stuck in her distal esophagus and she will have to drink water to get it to pass. She does not ever have to regurgitate it. This does not happen every time she eats but is it very painful when this happens. Her nausea is intermittent and not always associated with oral intake. She has a hx of GERD and has had an EGD before to assess this. The pain does not feel exactly like heartburn to her. She was prescribed omeprazole recently by her PCP and has not noticed much of a difference yet. Last EGD and colonoscopy was less than 10 years ago. [facility] Medical History Cardiology follow-up encounter History of echocardiogram Wears glasses Arthritis Sleep apnea Former smoker Gastric reflux Heart murmur Home Medications ?Medication ?Instructions ?Recorded ?Last Taken ?Type acetaminophen 500 mg capsule 500 mg PO Q6H PRN fever or pain 06/08/24 Unknown History famotidine 20 mg tablet (Acid 20 mg PO BID 06/30/24 06/30/24 History Controller) Allergy/AdvReac Type Severity Reaction Status Date / Time No Known Allergies Allergy Verified 07/04/24 05:56 Surgical History Tubal ligation status Hx laparoscopic cholecystectomy H/O: hysterectomy History of total left knee replacement Social History Smoking Status: Former smoker ROS Constitutional Constitutional: Denies fatigue, fever(s), poor appetite, weight gain or weight loss Gastrointestinal Gastrointestinal: Denies belching, bloating, change in bowel habits, change in stool character, chewing difficulty, coffee ground emesis, constipation, cramping, diarrhea, dyspepsia, dysphagia, early satiety, excessive flatus, fecal incontinence, heartburn, hematemesis, hematochezia, hemorrhoids, loose stools, melena, nausea, odynophagia, rectal bleeding, tenesmus, vomiting or weight changes Vital Signs Vital Signs Vital Signs: 07/04/24 05:56 07/04/24 05:56 07/04/24 06:29 Temperature 98.1 F 98.1 F Temperature Source Temporal Pulse Rate 88 88 Respiratory Rate 17 17 Respiratory Pattern Normal Blood Pressure 112/86 H 112/86 H Blood Pressure Mean 94 Blood Pressure Source Monitor Blood Pressure Position Semi-Fowlers Blood Pressure Location Left Arm Pulse Ox 100 100 Oxygen Delivery Method Room Air Room Air Weight Weight: 198 lb 6.656 oz Body Mass Index (BMI) 32.0 Physical Exam Const alert, oriented x3, no apparent distress and healthy appearing General Appearance: cooperative GI normal to inspection, nondistended, normoactive bowel sounds, soft to palpation, non-tender and non-distended Percussion: normal to percussion Rectal Exam: deferred Assessment & Plan Assessment/Plan (1) Nausea & vomiting: (2) Dysphagia: PLAN: Plan Assessment and Plan Assessment and Plan (1) Dysphagia: Plan: This is a 63 yo female women here today for evaluation of epigastric pain, difficulty swallowing and nausea. She does have a PMhx of GERD and has had an EGD in the past to assess this. She will need to undergo EGD to assess for inflammation, stricture or ulcer. She will also have a GES to rule out gastroparesis as she has daily nausea. She will continue omeprazole 40 mg dialy in the meantime. -EGD -GES -Continue PPI -f/u after procedure (2) Nausea & vomiting: Status: Acute Orders: Orders Gastric Emptying Study Today R11.2 - Nausea with vomiting, unspecified
--- NOTE | 2024-07-04 07:09 | OP.CCLET_ITS ---
07/04/2024 Olinda Humphrey Re : Upper GI endoscopy procedure for Rebecca Byers Dear Kam This procedure was performed on Thursday, July 04, 2024. My impressions and recommendations are as follows: Impressions : - LA Grade A chronic esophagitis with no bleeding. Biopsied. - Moderate Schatzki ring. Dilated. - Bile gastritis. Biopsied. - Erythematous duodenopathy. Biopsied. Recommendations : - Await pathology results. - Continue present medications. My findings are described in the full procedure note, which is enclosed. If I can be of further assistance, please feel free to contact me at . Sincerely, Dg Vargas, 07/04/2024 7:08:24 AM This report has been signed electronically.
--- NOTE | 2024-07-04 07:09 | OP.EGD_ITS ---
Patient Name: Rebecca Byers Procedure Date: 07/04/2024 6:17 AM Date of : 1960 Age: 63 Procedure: Upper GI endoscopy Indications: Epigastric abdominal pain, Functional Dyspepsia, Dysphagia Providers: Dg Vargas DO Referring MD: Olinda Humphrey Medicines: Monitored Anesthesia Care Patient Profile: This is a 63 year old female. Refer to note in patient chart for documentation of history and physical. Patient has symptoms of chronic abdominal distention, chronic epigastric abdominal pain, chronic dysphagia, dysphagia with solids, chronic dyspepsia and chronic nausea. Complications: No immediate complications. Procedure: Pre-Anesthesia Assessment: - Prior to the procedure, a History and Physical was performed, and patient medications and allergies were reviewed. The patient is competent. The risks and benefits of the procedure and the sedation options and risks were discussed with the patient. All questions were answered and informed consent was obtained. Patient identification and proposed procedure were verified by the physician in the pre-procedure area. Mental Status Examination: alert and oriented. Airway Examination: normal oropharyngeal airway and neck mobility. Respiratory Examination: clear to auscultation. CV Examination: normal. Prophylactic Antibiotics: The patient does not require prophylactic antibiotics. Prior Anticoagulants: The patient has taken no anticoagulant or antiplatelet agents except for NSAID medication. ASA Grade Assessment: II - A patient with mild systemic disease. After reviewing the risks and benefits, the patient was deemed in satisfactory condition to undergo the procedure. The anesthesia plan was to use monitored anesthesia care (MAC). Immediately prior to administration of medications, the patient was re-assessed for adequacy to receive sedatives. The heart rate, respiratory rate, oxygen saturations, blood pressure, adequacy of pulmonary ventilation, and response to care were monitored throughout the procedure. The physical status of the patient was re-assessed after the procedure. After obtaining informed consent, the endoscope was passed under direct vision. Throughout the procedure, the patient's blood pressure, pulse, and oxygen saturations were monitored continuously. The gastroscope was introduced through the mouth, and advanced to the second part of duodenum. The upper GI endoscopy was accomplished without difficulty. The patient tolerated the procedure well. Scope In: 6:53:05 AM Scope Out: 7:00:34 AM Total Procedure Duration Time 0 hours 7 minutes 29 seconds Findings: LA Grade A (one or more mucosal breaks less than 5 mm, not extending between tops of 2 mucosal folds) esophagitis with no bleeding was found 37 to 39 cm from the incisors. Biopsies were taken with a cold forceps for histology. Verification of patient identification for the specimen was done. Estimated blood loss was minimal. A moderate Schatzki ring was found at the gastroesophageal junction. A guidewire was placed and the scope was withdrawn. Dilation was performed with a Savary dilator with no resistance at 57 Fr. The dilation site was examined and showed moderate mucosal disruption. Estimated blood loss was minimal. Diffuse mild inflammation characterized by congestion (edema) and erythema was found in the cardia, in the gastric fundus, in the gastric body and in the gastric antrum. Biopsies were taken with a cold forceps for histology. Verification of patient identification for the specimen was done. Estimated blood loss was minimal. Biopsies were taken with a cold forceps for Helicobacter pylori testing. Verification of patient identification for the specimen was done. Estimated blood loss was minimal. Diffuse mildly erythematous mucosa without active bleeding and with no stigmata of bleeding was found in the duodenal bulb, in the first portion of the duodenum and in the second portion of the duodenum. Biopsies were taken with a cold forceps for histology. Impression: - LA Grade A chronic esophagitis with no bleeding. Biopsied. - Moderate Schatzki ring. Dilated. - Bile gastritis. Biopsied. - Erythematous duodenopathy. Biopsied. Recommendation: - Await pathology results. - Continue present medications. Procedure Code(s): --- Professional --- 70835, Esophagogastroduodenoscopy, flexible, transoral; with insertion of guide wire followed by passage of dilator(s) through esophagus over guide wire 88321, 59,51, Esophagogastroduodenoscopy, flexible, transoral; with biopsy, single or multiple CPT copyright 2021 [employer]. All rights reserved. The codes documented in this report are preliminary and upon medical insurance coder review may be revised to meet current compliance requirements. Dg Vargas DO 07/04/2024 7:08:24 AM This report has been signed electronically. Number of Addenda: 0 Note Initiated On: 07/04/2024 6:17 AM
--- NOTE | 2024-07-04 07:11 | PCM.POST.ANE ---
Anesthesia: Postop Eval I Current Vital Signs Temperature: 97.6 F Pulse Rate: 16 Blood Pressure: 98/69 Respiratory Rate: 16 Pulse Ox: 97 Oxygen Delivery Method: Room Air Assessment Airway patent: Yes Spontaneous unlabored respirations: Yes Mental status: Awake nausea: No Vomiting: No Anesthesia Complication: No Fluid Hydration Crystalloid volume administer (ml): 30 Total IV fluid infused: 30 Progress Note Anesthesia document: Postop Eval 1 completed: Yes
--- NOTE | 2024-07-04 08:51 | PCM.POSTANE2 ---
Anesthesia Postop Eval I Sum Postop Eval Completion status Anesthesia document: Postop Eval 1 completed: Yes Anesthesia Postop Eval I Summary Anesthesia Postop Eval I Summary: Anesthesia Postop Eval I: Assessment Summary Airway patent Yes 07/04/24 07:13 [email or web address] Spontaneous unlabored Yes 07/04/24 07:13 [email or web address] respirations Mental status Awake 07/04/24 07:13 [email or web address] nausea No 07/04/24 07:13 [email or web address] Vomiting No 07/04/24 07:13 [email or web address] Anesthesia Postop Eval I: Fluid Summary Crystalloid volume administer 30 07/04/24 07:13 [email or web address] (ml) Colloids volume administered ( ml) Blood Product volume administered (ml) Total IV fluid infused 30 07/04/24 07:13 [email or web address] Anesthesia Postop Eval I: Summary Notes Anesthesia Complication No 07/04/24 07:13 [email or web address] Anesthesia Complication Comment: Post-operative progress note Anesthesia: Postop Eval II Evaluation Mental status: Awake and Calm Pain Level: 0 nausea: No Vomiting: No Complications Anesthesia Complication: No
== END 2024-07-04 08:12 | disposition home or self-care (01) ==
LOC: EN 05:32 → AC 05:34
PROVIDERS: Visit Provider Internal Medicine Gastroenterology
PROC: 0DJ08ZZ Inspection of Upper Intestinal Tract, Via Natural or Artificial Opening Endoscopic (ICD-10-PCS; CPT 43235; principal; 2024-07-04 06:30)
DX: K29.70 Gastritis, unspecified, without bleeding (principal); R13.10 Dysphagia, unspecified; K20.80 Other esophagitis without bleeding; Z87.891 Personal history of nicotine dependence; Z98.51 Tubal ligation status; Z90.49 Acquired absence of other specified parts of digestive tract; Z90.710 Acquired absence of both cervix and uterus
CPT/HCPCS: 43239; 43248; 88305; 88312; 88341; 88342; A4216; C1769; J2405

== ENCOUNTER → 2024-07-17 | Outpatient (CLI) | payer BC, SELFPAY ==
--- NOTE | 2024-07-17 10:20 | NM_ITS ---
CLINICAL: 63-year-old female with history of chronic nausea. SEMI-SOLID PHASE 99m Tc SULFUR COLLOID GASTRIC EMPTYING STUDY COMPARISON: None available FINDINGS: The patient was administered 1.1 mCi of 99m Tc sulfur colloid mixed with oatmeal and consumed per os. Image acquisitions in the anterior-posterior projections were obtained for 60 minutes. There is prompt visualization of the stomach. There is no gastroesophageal reflux identified. The T ? linear fit was calculated to be 50.76 minutes, (Normal: 12-56 minutes). NM/Gastric Emptying Study IMPRESSION: 1. NORMAL 99m Tc sulfur colloid semi-solid phase (oatmeal) gastric emptying imaging examination. A. There is upper limits of normal and preserved semi-solid phase gastric emptying compared to normal controls. (Anju et al, J Nucl Med Tech 38: 186, 2010). Electronically Signed: Tyrel Tejada DO at 8:31 EST ,
== END | disposition home or self-care (01) ==
LOC: NM 10:16
PROVIDERS: Referring Provider Student in an Organized Health Care Education/Training Program; Visit Provider Student in an Organized Health Care Education/Training Program
DX: R11.2 Nausea with vomiting, unspecified (principal)
CPT/HCPCS: 78264; A9541